=== PATIENT | male | born 1960 | race Caucasian/White ===

== ENCOUNTER 2020-12-22 09:51 | Outpatient (REF) | payer BC, SELFPAY | END 2020-12-22 09:52 | disposition home or self-care (01) | LOC: HO.LAB 09:51 | PROVIDERS: Visit Provider Internal Medicine | DX: Z20.822 Contact with and (suspected) exposure to COVID-19 (principal) | CPT/HCPCS: C9803; U0003; U0005 ==

== ENCOUNTER 2025-01-25 04:39 | Inpatient (IN) | payer BC, SELFPAY ==
[2025-01-25] VITALS (14 sets, daily range): BP systolic 113–183; BP diastolic 71–118; PULSE 92–132; RESP 16–25; TEMP 36.3–37.1; O2SAT 94–97; BMI 32.7; BMI 33.6
--- NOTE | ~2025-01-25 | XR_ITS ---
CLINICAL HISTORY: SOB 1 view chest x-ray Comparison: None provided Findings: Mild diffuse interstitial vascular congestion/edema. Small left pleural effusion. No pneumothorax. The heart shadow is moderately prominent. No acute fracture. IMPRESSION: Prominent heart shadow. Mild diffuse interstitial edema. Small left pleural effusion. This document has been electronically signed by: Rajesh Yang MD on 01/25/2025 06:37:51
--- NOTE | ~2025-01-25 | CT_ITS ---
CLINICAL HISTORY: moderate risk wells critera, eval for PE CT angiography chest with contrast. 3D Postprocessing. Comparison: CR - XR CHEST 1V - 01/25/25 05:24 EDT Findings: Cardiomegaly is present with left atrial enlargement. RV/LV ratio is normal. Unremarkable thoracic aorta and great vessels. No aneurysm. No acute pulmonary embolus. The visualized thyroid and mediastinum are unremarkable. Bilateral mid to lower lung predominant interlobular septal thickening with ground-glass opacities consistent with pulmonary edema. Small bilateral pleural effusions. Right lower lobe patchy opacities could reflect developing pneumonia. The upper abdomen is unremarkable. The bones are intact. IMPRESSION: 1. No pulmonary embolism. 2. Pulmonary edema, bilateral small pleural effusions, with patchy right lower lobe consolidation suggesting possible superimposed pneumonia. This document has been electronically signed by: Yoni Weeks MD on 01/25/2025 07:06:05
--- NOTE | 2025-01-25 04:45 | ECG_ITS ---
Test Reason : SOB Blood Pressure : */* mmHG Vent. Rate : 129 BPM Atrial Rate : * BPM P-R Int : * ms QRS Dur : 84 ms QT Int : 270 ms P-R-T Axes : * 2 59 degrees QTcB Int : 395 ms Artifact in tracing Atrial fibrillation with rapid ventricular response with premature ventricular or aberrantly conducted complexes Abnormal ECG No previous ECGs available Referred By: Generic ED Physician Electronically Signed By: JAMIE RILEY
--- NOTE | 2025-01-25 04:53 | ED_ITS ---
HPI - Asthma General Chief Complaint: Asthma Stated Complaint: difficulty breathing Time Seen by Provider: 01/25/25 04:53 Source: patient and family Mode of arrival: ambulatory Limitations: no limitations History of Present Illness ED Provider: Dr. Denise Bucio HPI Narrative: 64-year-old male with remote history of asthma, does not see primary care doctor and has not seen a doctor in his entire adult life, does not take any medications, presenting with shortness of breath that is been ongoing for about a week now. Patient admits that he has been having intermittent shortness of breath with exertion for many years but has noticed worsening symptoms over the last month or so. Noted about a week ago to have severe shortness of breath to the point where this morning he felt like he was ?breathing under water? and came to the hospital for evaluation. Denies associated fever. Describes chest tightness but no outright pain. Has also been having issues with hemoptysis over the last 4 days. Unable to quantify the amount. Denies known sick contacts. No recent incarceration or immunocompromise that he is aware of. Denies lower extremity edema or pain. No family history of early onset heart disease or sudden cardiac . No recent travel. Admits to asthma as a child but never prescribed an inhaler. Occasionally uses an [id number] inhaler for asthma. No prescribed bronchodilators. No use of anticoagulation. Related Data Allergies Allergy/AdvReac Type Severity Reaction Status Date / Time Seasonal Allergies Allergy Runny Nose Verified 01/25/25 04:46 Sulfa (Sulfonamide Allergy Rash Verified 01/25/25 04:46 Antibiotics) Review of Systems 2 Review of Systems: As per HPI, full review of systems performed and negative but for the above mentioned pertinent positives and negatives. [facility] Social History Social History Smoked in Last 30 Days: No Use of substances other than those prescribed or required for medical reasons: No Advance Directives: No Advance Directives Information Provided: Yes Do you have a plan to hurt others: No Plan Physical Exam 2 Exam: Exam: GENERAL: Chronically ill-appearing, mild respiratory distress. SKIN: Normal skin color for ethnicity, warm, dry, no rashes noted. HEENT: Normocephalic, atraumatic, no stridor, EOMI. NECK: Soft, supple, full ROM, midline structures nontender, no step-offs, no deformities, no lymphadenopathy. CHEST: Heart regular tachycardia, symmetric chest rise and fall. PULMONARY: Coarse lung sounds bilaterally, diminished at the bases, ,mild respiratory distress with poor air movement, no wheezes. ABDOMINAL: Soft, protuberant nontender, quiet bowel sounds in all quadrants. : Deferred. MUSCULOSKELETAL: Normal tone, full range of motion, no deformities, no peripheral edema. NEURO: Alert and oriented to person, CN II through XII intact, no focal neurologic deficits. PSYCHIATRIC: Anxious affect, appropriate demeanor. Vital Signs: Vital Signs: Last Vital Signs Temp 97.4 F 01/25/25 07:10 Pulse 113 H 01/25/25 07:10 Resp 20 01/25/25 07:10 BP 150/100 H 01/25/25 07:10 Pulse Ox 94 01/25/25 07:10 O2 Del Method Room Air 01/25/25 07:10 BMI result Body Mass Index 32.7 Medications Administered Discontinued Medications Generic Name Dose Route Start Last Admin Trade Name Efraínq PRN Reason Stop Dose Admin Albuterol/Ipratropium 3 ml 01/25/25 05:19 01/25/25 05:27 Albuterol/Iprat 2.5/0.5mg 3 Ml Ampul.Neb INHALE 01/25/25 05:20 3 ml ONCE ONE Administration Diltiazem HCl 15 mg 01/25/25 05:12 01/25/25 05:15 Diltiazem Hcl 50 Mg/10 Ml Vial IVPUSH 01/25/25 05:13 15 mg ONCE ONE Administration Furosemide 40 mg 01/25/25 06:09 01/25/25 06:22 Furosemide 40 Mg/4 Ml Vial IVPUSH 01/25/25 06:10 40 mg ONCE ONE Administration Protocol Lactated Ringer's 1,000 mls @ 999 mls/hr 01/25/25 05:19 01/25/25 06:10 Lr IV 01/25/25 06:19 Infused .Q1H1M ONE Infusion Iohexol 65 ml 01/25/25 06:15 01/25/25 06:16 Iohexol 350 Mg/Ml 100 Ml Infus..Btl IV 01/25/25 06:16 65 ml ONCE ONE Administration Medical Decision Making Medical Decision Making MDM Narrative: Patient presents in respiratory distress. Differential diagnosis includes flash pulmonary edema, COPD exacerbation, pneumothorax, pneumonia, ACS, pulmonary embolism, metabolic acidosis, CHF, arrhythmias, among many others. The serious nature of the patient's symptoms makes this presentation complex, with potential for significant, worsening morbidity and mortality without immediate treatment/intervention. Patient arrives in respiratory distress but has a relatively normal oxygen level on room air. His work of breathing is extremely labored and he is having poor air movement though I do not hear any crackles on exam. He has a history of asthma so we will attempt a bronchodilator however, clinically he presents more of a cardiac picture. He has had hemoptysis over the last 5 days or so, concern for potential pulmonary embolism versus pneumonia. He will need a CTA to evaluate this further. CTA does not show evidence of pulmonary embolism but he does have a dense consolidation in the right lower lobe as well as bilateral pleural effusions. He was given broad-spectrum antibiotics including doxycycline and Rocephin. Holding off on further IV fluids given his bilateral pleural effusions and clinical picture of congestive heart failure. He does not have a history of CHF or of atrial fibrillation for that matter. That being said, he has not seen a doctor in his entire adult life and has never been diagnosed with any cardiopulmonary disease. He initially presented in rapid atrial fibrillation, rate controlled after just a single dose of Cardizem IV (15 mg). He reports significant improvement in his symptoms and indeed, his blood pressure has improved drastically. Case discussed with hospitalist who agrees with the plan for admission. Admitted in guarded condition with new onset atrial fibrillation, bilateral pleural effusions and right lower lobe pneumonia. Differential Diagnosis Differential Diagnoses: The differential diagnosis associated with the presentation includes (As above) Admission/Observation Consideration of admission/observation: Escalation of care including admission/observation considered Consult Healthcare Provider Management of the patient was discussed with: Hospitalist Lab Data MDM Lab Attestation statement: I reviewed the patient's lab results. 01/25/25 05:01 01/25/25 05:01 Labs: Lab Results 01/25/25 01/25/25 Range/Units 05:01 05:07 WBC 8.5 (4.8-10.8) X10*3/uL RBC 5.44 (4.60-5.80) X10*6/uL Hgb 15.7 (14.0-18.0) g/dl Hct 46.3 (42.0-52.0) % MCV 85.1 (80.0-98.0) fL MCH 28.9 (27.0-33.0) pg MCHC 33.9 (31.0-36.0) g/dl RDW 13.0 (11.0-16.0) % Plt Count 170 (160-400) X10*3/uL MPV 10.7 (9.4-12.4) fL Immature Gran % (Auto) 0.2 (0.0-0.4) % Neut % (Auto) 75.6 H (45-73) % Lymph % (Auto) 14.7 L (20-40) % [place] % (Auto) 7.4 (2-11) % Eos % (Auto) 2.0 (0-4) % Baso % (Auto) 0.1 (0-2) % Lymph # (Auto) 1.2 (1.2-4.9) X10*3/uL [place] # (Auto) 0.6 (0.1-1.2) X10*3/uL Eos # (Auto) 0.2 (0.0-0.4) X10*3/uL Baso # (Auto) 0.0 (0.0-0.2) X10*3/uL Abs Immat Gran (auto) 0.02 (0.00-0.03) X10*3/uL Absolute Neuts (auto) 6.4 (2.0-8.3) x10*3/uL Absolute Nucleated RBC 0.000 (0.0-0.012) X10*3/uL Nucleated RBC % (auto) 0.0 (0.0-0.2) /100WBC VBG pH 7.37 (7.32-7.43) VBG pCO2 46 mmHg VBG pO2 46 mmHg VBG HCO3 27 H (22-26) mmol/L VBG O2 Saturation 64.0 % VBG Base Excess 1.2 mmol/L Sodium 141 (135-145) mmol/L Potassium 4.3 (3.3-5.1) mmol/L Chloride 108 (96-108) mmol/L Carbon Dioxide 22 (22-29) mmol/L Anion Gap 15 (12-20) BUN 17 H (9-16) mg/dL Creatinine 1.17 (0.5-1.4) mg/dL Estim Creat Clear Calc 67.6 Estimated GFR > 60 Random Glucose 128 H (60-115) mg/dL Calcium 9.0 (8.4-10.2) mg/dL Magnesium 2.1 (1.6-2.6) mg/dL Total Bilirubin 1.0 (0.0-1.0) mg/dL AST 26 (5-37) U/L ALT 23 (0-40) U/L Alkaline Phosphatase 129 H (39-117) U/L Troponin I High Sens 8.6 (<3.5-35.0) ng/L NT-Pro-B Natriuret Pep 2354.1 H (<300) pg/mL Total Protein 7.0 (6.5-8.0) g/dL Albumin 4.3 (3.5-5.0) g/dL TSH 3.76 (0.32-4.0) uIU/mL Influenza Type A (PCR) NEGATIVE (Negative) Influenza Type B (PCR) NEGATIVE (Negative) RSV RNA Qual (PCR) NEGATIVE (Negative) SARS-CoV-2 RNA (RT-PCR) NEGATIVE (Negative) ABG Data Attestation ABG: I personally reviewed and interpreted this ABG as follows: Interpretation: No acidosis, slightly elevated bicarbonate, likely compensatory Independent Interpretation I performed an independent interpretation of an: EKG and Plain X-Ray Interpretation: Chest x-ray shows evidence of pulmonary edema, no dense consolidation or bony abnormality, slight cardiomegaly. 4:53 a.m. My independent interpretation of the ECG reveals atrial fibrillation with RVR with rate of 129, normal axis, normal intervals, no ST elevations or depressions to suggest ischemic changes, no previous for comparison 5:36 a.m. My independent interpretation of the ECG reveals atrial fibrillation with RVR with rate of 98, leftward axis, normal intervals, no ST elevations or depressions to suggest ischemic changes, PVCs, rate improved from previous Radiology Impression Discussion of test interpretation with radiology: I have reviewed the radiologist's reading. Radiologist Impression: CT angiography chest with contrast. 3D Postprocessing. Comparison: CR - XR CHEST 1V - 01/25/25 05:24 EDT Findings: Cardiomegaly is present with left atrial enlargement. RV/LV ratio is normal. Unremarkable thoracic aorta and great vessels. No aneurysm. No acute pulmonary embolus. The visualized thyroid and mediastinum are unremarkable. Bilateral mid to lower lung predominant interlobular septal thickening with ground-glass opacities consistent with pulmonary edema. Small bilateral pleural effusions. Right lower lobe patchy opacities could reflect developing pneumonia. The upper abdomen is unremarkable. The bones are intact. IMPRESSION: 1. No pulmonary embolism. 2. Pulmonary edema, bilateral small pleural effusions, with patchy right lower lobe consolidation suggesting possible superimposed pneumonia. Independent Historian Clinical information obtained from an independent historian. History obtained from or confirmed by: Spouse Prescription Management I considered prescription management with: Antibiotic Chronic Conditions Patient?s care impacted by: Other (Asthma) Critical Care Time Critical Care Time Critical Care Time: Yes Total Critical Care Time: 40 Attestation: CRITICAL CARE TIME: 40 minutes of critical care time was spent in direct patient care at the bedside or in the immediate area with this patient. Critical care was necessary to treat or prevent imminent or life-threatening deterioration of the following conditions acute dyspnea, atrial fibrillation with RVR, new onset CHF, hemoptysis due to pulmonary edema, pneumonia, pleural effusions. This patient is high risk for decompensation and/or . This time was spent assessing and managing the patient, interpreting labs and imaging, coordinating care with other medical providers, gathering history from either the patient, their representatives, EMS or chart review, and discussing management with admitting team. Discharge Plan Discharge Clinical Impression: Acute respiratory distress, Pneumonia, New onset atrial fibrillation, Atrial fibrillation with rapid ventricular response, Pleural effusion, bilateral Patient Disposition: Admitted As Inpatient Print Language: [place]i
[2025-01-25 05:05] LABS: Venous Blood Gas Refer to POC result
[2025-01-25 05:07] LABS: Hematocrit 46.3 % (42.0-52.0); Hemoglobin 15.7 g/dl (14.0-18.0); Imm Gran Abs Auto 0.02 X10*3/uL (0.00-0.03); Imm Gran Pct Auto 0.2 % (0.0-0.4); Lymphocytes Absolute Auto 1.2 X10*3/uL (1.2-4.9); MANUAL DIFF FLAG NO; Mean Corpuscular HGB Conc 33.9 g/dl (31.0-36.0); Mean Corpuscular Hemoglobin 28.9 pg (27.0-33.0); Mean Corpuscular Volume 85.1 fL (80.0-98.0); NRBC Abs Auto 0.000 X10*3/uL (0.0-0.012); NRBC Pct Auto 0.0 /100WBC (0.0-0.2); Platelet Count 170 X10*3/uL (160-400); Red Blood Count 5.44 X10*6/uL (4.60-5.80); White Blood Count 8.5 X10*3/uL (4.8-10.8)
[2025-01-25 05:11] LABS: VBG HCO3 27 mmol/L (22-26); VBG O2 % Saturation 64.0 %
--- NOTE | 2025-01-25 05:19 | ECG_ITS ---
Test Reason : ARRHYTHMIA Blood Pressure : */* mmHG Vent. Rate : 93 BPM Atrial Rate : * BPM P-R Int : * ms QRS Dur : 88 ms QT Int : 364 ms P-R-T Axes : * 1 33 degrees QTcB Int : 452 ms Atrial fibrillation Abnormal ECG When compared with ECG of 25-Jan-2025 04:53, No significant change was found Referred By: Denise Bucio Electronically Signed By: JAMIE RILEY
--- NOTE | 2025-01-25 05:20 | ECG_ITS ---
Test Reason : ARRYTHMIA Blood Pressure : */* mmHG Vent. Rate : 98 BPM Atrial Rate : * BPM P-R Int : * ms QRS Dur : 86 ms QT Int : 360 ms P-R-T Axes : * -3 -20 degrees QTcB Int : 459 ms Atrial fibrillation with premature ventricular or aberrantly conducted complexes Nonspecific T wave abnormality Abnormal ECG When compared with ECG of 25-Jan-2025 05:19, No significant changes seen Referred By: Denise Bucio Electronically Signed By: JAMIE RILEY
[2025-01-25] MEDS: Albuterol/Iprat 2.5/0.5MG 3 ML AMPUL.NEB INHALE (05:27)
[2025-01-25] MEDS: Lactated Ringers 1,000 ML 999 ML IV (05:27)
[2025-01-25 05:30] LABS: Alanine Aminotransferase 23 U/L (0-40); Albumin Level 4.3 g/dL (3.5-5.0); Alkaline Phosphatase 129 U/L (39-117); Anion Gap 15 (12-20); Aspartate Amino Transferase 26 U/L (5-37); Blood Urea Nitrogen 17 mg/dL (9-16); Calcium 9.0 mg/dL (8.4-10.2); Carbon Dioxide 22 mmol/L (22-29); Chloride 108 mmol/L (96-108); Creatinine Clr Calc Pharmacy 67.6; Estimated Glomerular Filt Rate > 60; Magnesium 2.1 mg/dL (1.6-2.6); Potassium 4.3 mmol/L (3.3-5.1); Sodium 141 mmol/L (135-145); Total Protein 7.0 g/dL (6.5-8.0)
[2025-01-25 05:33] LABS: Troponin-I High Sensitivity 8.6 ng/L (<3.5-35.0)
[2025-01-25 05:35] LABS: NT Pro B Type Natriuretic Pept 2354.1 pg/mL (<300)
[2025-01-25 05:44] LABS: Resp Syncy Virus RNA Qual PCR NEGATIVE (Negative); SARS COV2 PCR INHOUSE NEGATIVE (Negative)
[2025-01-25 05:48] LABS: Thyroid Stimulating Hormone 3.76 uIU/mL (0.32-4.0)
--- OUTSIDE RECORDS SUMMARY | 2025-01-25 05:48 | XMS_ITS | Data Portability ---
Author Organization JACKY Cutler [facility], [address] Address [address] [place] [address] Assessment No assessment recorded. Plan of Treatment Reminders Order Date Submit Date Provider Last Modified By Organization Details Last Modified Time Details Appointments None recorded. Lab urinalysis , dipstick 2022 023 [facility] [address], [address], 16:12:01 STI panel 2022 023 [facility], [address] [place] [address], [place], [address], 10:06:29 Referral None recorded. Procedures None recorded. Surgeries None recorded. Imaging None recorded. Medication Orders ceftriaxon e 500 mg solution for injection 2022 023 emonfette Not available 16:20:24 doxycyclin e hyclate 100 mg capsule 2022 023 [id number], [address] [place], [place], [id number], 16:13:17 Patient TargetsNo targets recorded. Patient Instructions Encounter Date Encounter Id Patient Instructions Last Modified By Organization Details Last Modified Time 09/19/2022 [id number] safer sex: care instructions skeal Not available 09/19/2022 16:13:45 Reason for Referral None Reported. Results Created Date Observation Date Name Description Value Unit Range Abnormal Flag Note LastModifiedBy Organization Detail LastModifiedTime 09/20/19 23 09/22/2022 CT NG M GENIT ALIUM MARISSA, URINE mycoplasma genitalium MARISSA NEGATI VE negati ve Not Available [facility] ([facility]) [address] [facility], [place], [address], 09/24/2022 10:06:29 09/20/19 23 09/24/2022 CT NG M GENIT ALIUM MARISSA, URINE chlamydia trachomatis, MARISSA NEGATI VE negati ve Not Available [facility] ([facility]) [address] [facility], [place], [address], 09/24/2022 10:06:29 09/20/19 23 09/24/2022 CT NG M GENIT ALIUM MARISSA, URINE neisseria gonorrhoeae, MARISSA POSITI VE negati ve abnormal Not Available [facility] ([facility]) [address] [place], [address], 09/24/2022 10:06:29 09/20/19 23 09/19/2022 urina lysis , dipst ick Unknown Analyte Normal = light yellow Not Available [facility] [address], [address], 09/19/2022 15:30:53 09/20/19 23 09/19/2022 urina lysis , dipst ick Unknown Analyte Yellow Not Available [address], [address], 09/19/2022 15:30:53 09/20/19 23 09/19/2022 urina lysis , dipst ick Unknown Analyte Normal = clear Not Available [address], [address], 09/19/2022 15:30:53 09/20/19 23 09/19/2022 urina lysis , dipst ick Unknown Analyte Clear Not Available [address] [place], [address], 09/19/2022 15:30:53 09/20/19 23 09/19/2022 urina lysis , dipst ick Unknown Analyte Normal = negati ve Not Available eddie howell [address], [place], [address], 09/19/2022 15:30:53 09/20/19 23 09/19/2022 urina lysis , dipst ick Unknown Analyte Negati ve Not Available eddie howell [address], [place], [address], 09/19/2022 15:30:53 09/20/19 23 09/19/2022 urina lysis , dipst ick Unknown Analyte Normal = Negati ve Not Available eddie howell [address], [place], [address], 09/19/2022 15:30:53 09/20/19 23 09/19/2022 urina lysis , dipst ick Unknown Analyte Negati ve Not Available eddie howell [address], [place], [address], 09/19/2022 15:30:53 09/20/19 23 09/19/2022 urina lysis , dipst ick Unknown Analyte Normal = Negati ve Not Available eddie howell [address], [place], [address], 09/19/2022 15:30:53 09/20/19 23 09/19/2022 urina lysis , dipst ick Unknown Analyte Negati ve Not Available eddie howell [address], [place], [address], 09/19/2022 15:30:53 09/20/19 23 09/19/2022 urina lysis , dipst ick Unknown Analyte Normal = 1.010, 1.015, 1.020 Not Available eddie howell [address], [place], [address], 09/19/2022 15:30:53 09/20/19 23 09/19/2022 urina lysis , dipst ick Unknown Analyte 1.030 Not Available [address], [place], [address], 09/19/2022 15:30:53 09/20/19 23 09/19/2022 urina lysis , dipst ick Unknown Analyte Normal = Negati ve Not Available [facility] [address], [place], [address], 09/19/2022 15:30:53 09/20/19 23 09/19/2022 urina lysis , dipst ick Unknown Analyte Negati ve Not Available [facility] [address], [place], [address], 09/19/2022 15:30:53 09/20/19 23 09/19/2022 urina lysis , dipst ick Unknown Analyte Normal = 6.5, 7.0, 7.5, 8.0 Not Available [facility] [address], [place], [address], 09/19/2022 15:30:53 09/20/19 23 09/19/2022 urina lysis , dipst ick Unknown Analyte 5.5 Not Available [address], [place], [address], 09/19/2022 15:30:53 09/20/19 23 09/19/2022 urina lysis , dipst ick Unknown Analyte Normal = Negati ve Not Available [address], [place], [address], 09/19/2022 15:30:53 09/20/19 23 09/19/2022 urina lysis , dipst ick Unknown Analyte Negati ve Not Available eddie howell [address], [place], [address], 09/19/2022 15:30:53 09/20/19 23 09/19/2022 urina lysis , dipst ick Unknown Analyte Normal = 0.2, 1.0 Not Available eddie howell [address], [place], [address], 09/19/2022 15:30:53 09/20/19 23 09/19/2022 urina lysis , dipst ick Unknown Analyte 0.2 E.U./d L Not Available eddie [address], [place], [address], 09/19/2022 15:30:53 09/20/19 23 09/19/2022 urina lysis , dipst ick Unknown Analyte Normal = Negati ve Not Available eddie howell [address], [place], [address], 09/19/2022 15:30:53 09/20/19 23 09/19/2022 urina lysis , dipst ick Unknown Analyte Negati ve Not Available eddie howell [address], [place], [address], 09/19/2022 15:30:53 09/20/19 23 09/19/2022 urina lysis , dipst ick Unknown Analyte Normal = Negati ve Not Available eddie howell [address], [place], [address], 09/19/2022 15:30:53 09/20/19 23 09/19/2022 urina lysis , dipst ick Unknown Analyte Negati ve Not Available [facility] [address] [place] [address], [place], [address], 09/19/2022 15:30:53 Result Notes None recorded. Problems No Known Problems Medical Equipment None Reported. Allergies Allergen ID Allergen Name Allergen Category Reaction Reaction Severity Criticality Documentation Date Start Date Code Code System Note Provider Name and Address Organization Details Recorded Time 935212 grass pollen environme nt,medica tion Not available Not available Not available 09/19/2022 JACKY Geller [facility] 15:25:03 [id number] Substance with sulfonami de structure and antibacte rial mechanism of action (substanc e) medicatio n rash Not available Not available 09/19/2022 [id number] SNOMED JACKY Geller [facility] 15:25:11 Medications Name Sig Start Date Stop Date Status Note LastModified by Organization Details LastModified Time doxycyclin e hyclate 100 mg capsule Take 1 capsule twice a day by oral route for 7 days. 2022 active Not Available Not Available Not Avai lable ceftriaxon e 500 mg solution for injection Take 500 mg by injection route for 1 day. 2022 active pt verified, tolerated well EM RN Not Available Not Available Not Available Vitals Date Recorded Body height Body mass index (BMI) Body weight Pain severity - 0-10 verbal numeric rating [Score] - Reported Respiratory rate Oxygen saturation Oxygen saturation in Arterial blood by Pulse oximetry Heart rate Body temperature Systolic And Diastolic Systolic And Diastolic Provider Name and Address Organization Details Last Updated DateTime 3 167.64 cm 29.9 kg/m2 85126.5 9 g 0 18 /min 97 % 97 % 94 /min 98.7 [degF] 177/103 mm[Hg] 200/130 mm[Hg] Aundrea Black [facility] 15:40:21 Social History Question Answer Notes LastModified by Organizat ion Details LastModified Time Tobacco Smoking Status Never Smoker JACKY Geller [facility] 09/19/2022 15:25:54 Have You Recently Traveled Abroad? No Information not available 09/19/2022 Sex: Unknown Functional Status Question Answer Note LastModified by Organizat ion Details LastModified Time How many times per week do you consume alcohol? Less than 1 time per week Information not available 09/19/2022 Do you use any illicit or recreational drugs? No Information not available 09/19/2022 Do you or have you ever used any other forms of tobacco or nicotine? No Information not available 09/19/2022 What is your level of alcohol consumption? Occasional Information not available 09/19/2022 Mental Status None recorded. Family History Relationship Description Onset Age of this Age Resolved Age Notes LastModified by Organization Details LastModified Time Father No current problems or disability [email or web address] Not available 09/19 15:25:41 Mother No current problems or disability [email or web address] Not available 09/19 15:25:42 Medical History No medical history recorded. Past Encounters Encounter ID Performer Location Encounter Start Date Encounter Closed Date Diagnosis/Indication Diagnosis SNOMED-CT Code Diagnosis ICD10 Code Diagnosis IMO Codes Diagnosis Note [id number] [facility] [address] [place] [address] 11/12/2016 09:54:03 11/12/2016 11:53:19 [id number] [address] [address] [place] [address] 07/11/2021 09:02:56 07/11/2021 10:47:29 [id number] [address] [address] [place] [address] 12/03/2019 08:26:18 12/03/2019 09:42:18 [id number] [address] [address] [address] [place] [address] 03/28/2018 11:23:14 03/28/2018 12:50:02 [id number] [address] [address] [facility] [place] [address] 11/03/2018 16:19:50 11/03/2018 16:46:42 [id number] [address] [address] [address] [address] [facility] [place] [address] 07/01/2016 09:08:08 07/01/2016 10:15:02 [id number] [address] [address] [facility] [place] [address] 12/30/2020 10:54:02 12/30/2020 15:07:11 [id number] [address] [address] [facility] [place] [address] 11/25/2015 13:54:06 11/25/2015 14:51:13 [id number] [address] [address] [place] [address] [address] 02/03/2017 09:26:43 02/03/2017 10:27:37 [id number] [address] [facility] [place] [address] 07/29/2017 11:19:19 07/29/2017 12:27:52 [id number] [address] [address] [address] [facility] [place] [address] 10/23/2020 08:03:14 10/23/2020 09:08:25 [id number] [address] [address] [facility] [place] [address] 01/22/2016 11:26:51 01/22/2016 12:12:20 [id number] [address] [address] [facility] [place] [address] 05/14/2016 09:14:22 05/14/2016 10:10:15 [id number] [address] [address] [place] [address] 11/07/2015 08:31:58 11/07/2015 09:41:58 [id number] [address] [address] [facility] [place] [address] 05/02/2021 12:13:40 05/02/2021 13:36:05 [id number] Claritza Bravo MD [address] [address] [place] [address] 09/19/2022 14:27:48 09/19/2022 16:29:09 Discharge from penis 6624171 R36.9 All sexually active men and women should receive periodic testing for STD's. The frequency that these tests should be repeated is dependent upon several factors, including the number of sexual partners, use of barrier contracept ion, and other factors.Te sting should include screening for Chlamydia, Gonorrhea, Syphilis, and HIV. Additional testing may be required if symptoms of specific STD's are present. If you are sexually active, you should follow up with the Local Health Department for HIV testing and any other testing not performed by depict . Partners should be notified and testing should occur as well if concerns exist. Hypertensive urgency 443 [id number] I16.0 BP elevated and needs ER evaluation . Patient signed AMA and will not go to ER Health Concerns Section Related Observation LastModified by Organization Detai ls LastModified Time None Recorded Concern Status LastModified by Organization Details LastModified Time None Recorded Advance Directives Directive None Recorded Payers Insurance Date Sequence Insurance Name Policy Number Policy Moore Covered Member ID Moore Member ID Guarantor Name 09/19/2022 1 MIKE-JUAN (PPO) [id number] Bernard Vega [id number] Bernard Vega Notes Date Note Type Note Provider Name and Address Organization Details Recorded Time 09/19/2022 text/html Genital Lesions (male)Reported by PatientHPIFor associated symptoms, patient reportspenile dischargebut reportsno abdominal pain,no dysuria,no nausea,no vomiting,no fever, andno urgency. For quality, patient reportspainless. For context, patient reportssexually active,consistent use of barrier protection, andhigh risk sexual activities.Has had gonnorhea in the past.Very elevated Blood Pressure. NO history HTN.Feels very anxious due to the situation Urinary Problems-MaleReported by Patient Claritza Bravo MD [address] [place], [address], [place] - [facility] 09/21/2022 13:15:32
[2025-01-25] MEDS: iohexoL 350 MG/ML 100 ML INFUS..BTL 65 ML IV (06:16)
[2025-01-25] MEDS: Furosemide 40 MG/4 ML VIAL IVPUSH ×2 (06:22→16:36)
--- NOTE | 2025-01-25 07:51 | PC.NURSE ---
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 Blood cultures and lactic drawn, iv abx started per order, denies pain, call cunningham within reach, plan of care ongoing
--- NOTE | 2025-01-25 08:37 | PM.IMHP ---
History of Present Illness Date of Service: 01/25/25 Chief Complaint: Shortness of breath 64-year-old man with no significant medical history presents to the ER with complaints of worsening shortness of breath with activity, palpitations and chest pressure over the last 3 weeks. He reported that he has not been in more than and has not on any medications but in the last few weeks he has noticed that with activity including climbing stairs and walking he has been more short of breath, when he sits down he starts to recover. He also reports central chest pressure without any radiation also with activity and heart palpitations. He denies alcohol, tobacco or drug use. In the ER chest CTA was negative for pulmonary embolism but did show pulmonary edema with bilateral small pleural effusions and patchy lower lobe consolidation suggesting possible, pro BNP was 2354, TSH 3.76. Blood pressure elevated at 183/118. In the ER patient was given a dose of diltiazem, albuterol, Lasix, ceftriaxone, doxycycline and 1 L of IV fluid. He will be admitted for further management and treatment of acute congestive heart failure, new onset AFib and pneumonia. Review of Systems Review of Systems: Denies any recent fever chills or decrease in appetite respiratory see HPI cardiovascular see HPI gastrointestinal denies any dysphagia abdominal pain nausea vomiting or diarrhea genitourinary denies any dysuria frequency or hematuria musculoskeletal denies any joint pain or swelling neuropsych denies any weakness or seizures all other systems reviewed are negative [facility] Medical History (Updated 01/25/25 @ 08:40 by Rose Cat NP) No pertinent past medical history Family History (Updated 01/25/25 @ 08:41 by Rose Cat NP) Father Skin cancer Mother Cancer of unknown origin Pertinent family history: Father had heart problems of unknown origin Surgical History (Updated 01/25/25 @ 08:42 by Rose Cat NP) H/O hernia repair S/P repair of hydrocele Social History (Updated 01/25/25 @ 08:44 by Rose Cat NP) Household Members: Spouse Alcohol intake: current Alcohol intake frequency: holidays/special occasions only Current occupational status: employed Meds Allergies Allergy/AdvReac Type Severity Reaction Status Date / Time Seasonal Allergies Allergy Runny Nose Verified 01/25/25 04:46 Sulfa (Sulfonamide Allergy Rash Verified 01/25/25 04:46 Antibiotics) Active Medications: Current Medications Doxycycline Hyclate 100 mg/ (Sodium Chloride) 250 mls @ 166.67 mls/hr IV ONCE ONE Stop: 01/25/25 08:45 Home Medications ?Medication ?Instructions ?Recorded ?Confirmed ?Last Taken ?Type No Known Home Meds 01/25/25 01/25/25 Unknown History Physical Exam Vital Signs and Narrative: Vital Signs: Last Vital Signs Temp 97.4 F 01/25/25 07:10 Pulse 113 H 01/25/25 07:10 Resp 20 01/25/25 07:10 BP 150/100 H 01/25/25 07:10 Pulse Ox 94 01/25/25 07:10 O2 Del Method Room Air 01/25/25 07:10 BMI result Body Mass Index 32.7 Appearing in no acute distress head is normocephalic atraumatic eyes pupils are PERRLA sclera is anicteric mouth throat mucous membranes are intact and moist neck is supple no lymphadenopathy, no JVD noted lung clear/rales heart irregular positive bowel sounds, abdomen is soft, nontender neuro patient is alert x3, no focal deficits Results Labs 01/25/25 05:01 01/25/25 05:01 Labs: Laboratory Results - last 24 hr 01/25/25 01/25/25 01/25/25 05:01 05:07 07:36 MCV 85.1 MCH 28.9 MCHC 33.9 RDW 13.0 Plt Count 170 MPV 10.7 Immature Gran % (Auto) 0.2 Neut % (Auto) 75.6 H Lymph % (Auto) 14.7 L [place] % (Auto) 7.4 Eos % (Auto) 2.0 Baso % (Auto) 0.1 Lymph # (Auto) 1.2 [place] # (Auto) 0.6 Eos # (Auto) 0.2 Baso # (Auto) 0.0 Abs Immat Gran (auto) 0.02 Absolute Neuts (auto) 6.4 Absolute Nucleated RBC 0.000 Nucleated RBC % (auto) 0.0 VBG pH 7.37 VBG pCO2 46 VBG pO2 46 VBG HCO3 27 H VBG O2 Saturation 64.0 VBG Base Excess 1.2 Anion Gap 15 Estim Creat Clear Calc 67.6 Estimated GFR > 60 Random Glucose 128 H Lactic Acid 1.8 Calcium 9.0 Magnesium 2.1 Total Bilirubin 1.0 AST 26 ALT 23 Alkaline Phosphatase 129 H Troponin I High Sens 8.6 NT-Pro-B Natriuret Pep 2354.1 H Total Protein 7.0 Albumin 4.3 TSH 3.76 Influenza Type A (PCR) NEGATIVE Influenza Type B (PCR) NEGATIVE RSV RNA Qual (PCR) NEGATIVE SARS-CoV-2 RNA (RT-PCR) NEGATIVE Assessment and Plan (1) New onset atrial fibrillation: Status: Acute Plan 64-year-old man with no significant medical problems admitted with new onset atrial fibrillation, acute congestive heart failure and pneumonia. Patient reports he has not seen a physician or been hospitalized in over 15 years. New onset atrial fibrillation, unspecified Treated with 1 dose of IV diltiazem in the ER Started on IV diltiazem drip Monitor on telemetry Chads 2 Vasc score 0, discussed with Cardiology regarding anticoagulation Check echocardiogram Cardiology consultation Acute congestive heart failure, unspecified Pleural effusions noted on CT scan, likely related to heart failure IV Lasix 40 mg IV b.i.d. Monitor intake and output Daily weights Cardiology consultation Pneumonia, unspecified IV Rocephin and azithromycin May use supplemental oxygen as needed to keep oxygen saturation greater than 91% Follow up blood cultures Elevated blood pressure readings No history of hypertension Start lisinopril 5 mg daily Monitor blood pressures closely Tachycardia and tachypnea Secondary to atrial fibrillation, no sepsis DVT prophylaxis with Lovenox Full code Quality Stroke Does the patient have a stroke diagnosis?: No VTE Prior VTE?: No VTE Risk Level:: Medical - moderate - high VTE Device Contraindication: Treatment Not Indicated VTE Drug Contraindication: N/A - Med Ordered
--- NOTE | 2025-01-25 08:40 | PHA.MEDREC ---
Addendum entered by Karena Toney RPh 01/25/25 08:46: Reviewed by pharmacist Original Note: Pharmacy Consult ? Medication Reconciliation Pharmacy has completed the medication reconciliation. Spoke with pt and he confirmed he is not taking any medications at this time.
--- NOTE | 2025-01-25 09:18 | PC.NURSE ---
cardizem drip cardizem drip was ordered, this nurse noted the patients hr was 90s-114 on the monitor and contacted Rose Cat/hospitalist to discuss and question the need for the drip. It was decided to hold the drip and medicate with PO cardizem, if his HR increases will notify the provider and reassess the need for the drip.
--- NOTE | 2025-01-25 09:38 | MHC.CM.PN ---
Pt. lives with his , he does not have a PCP, brochure provided. He does not use DME, to transport home at DC, DCP; home, self care. CM to follow for DC needs.
--- NOTE | 2025-01-25 10:33 | P.CONCA_ITS ---
History of Present Illness History of Present Illness Date of Service: 01/25/25 Chief complaint: CHF, afib Narrative: This is a cardiology consultation regarding atrial fibrillation and congestive heart failure. He has not seen any physician in more than 14 years or so, last time with the age of 50. He states he generally feels good and hence did not see a reason to see anyone. Apparently was doing fine and no issues but the last couple of weeks he has not been feeling good. He has been having issues with shortness of breath. Even mild activities of making short of breath. He also feeling sensations of heart racing. He was seen in the emergency room and found to be hypertensive and also found to be in atrial fibrillation rapid rate. We are consulted. Currently, he is on diltiazem. Not yet on anticoagulation. He states he feels okay. Review of Systems 2 Review of Systems: Yes all other systems are reviewed and are negative Constitutional: Constitutional: Reports as per HPI and Reports no additional constitutional complaints Eyes: Eyes: Reports as per HPI and Denies no additional eye complaints ENT: Denies system reviewed and no additional complaints, except as documented and Reports as per HPI Cardiovascular: Cardiovascular: Reports as per HPI, Reports no additional cardiovascular complaints, Denies acrocyanosis, Denies cool extremities, Denies chest pain, Denies leg edema, Denies lightheadedness, Reports palpitations and Reports dyspnea Respiratory: Respiratory: Reports as per HPI, Denies no additional respiratory complaints and Reports dyspnea Gastrointestinal: Gastrointestinal: Reports as per HPI and Denies no additional gastrointestinal complaints Genitourinary: Genitourinary: Reports no additional male genitourinary complaints and Reports as per HPI Musculoskeletal: Musculoskeletal: Reports no additional musculoskeletal complaints and Reports as per HPI Integumentary/Breasts: Skin/Breast: Reports system reviewed and no additional complaints, except as docu Neurologic: Reports system reviewed and no additional complaints, except as documented and Reports as per HPI Psychiatric: Psychiatric: Reports no additional psychiatric complaints and Reports as per HPI Endocrine: Endocrine: Reports no additional endocrine complaints, Reports as per HPI and Reports palpitations Hematologic/Lymphatic: Hematologic/Lymphatic: Reports no additional hematologic/lymphatic complaints and Reports as per HPI Allergic/Immunologic: Allergic/Immunologic: Reports no additional allergic/immunologic complaints and Reports as per HPI [facility] Past Medical History Medical History (Updated 01/25/25 @ 10:36 by Obed Pfeiffer MD) No pertinent past medical history Family History Family History (Updated 01/25/25 @ 08:41 by Rose Cat NP) Father Skin cancer Mother Cancer of unknown origin Pertinent family history: He thinks his father might have had atrial fibrillation but not sure. Surgical History Surgical History (Updated 01/25/25 @ 08:42 by Rose Cat NP) H/O hernia repair S/P repair of hydrocele Social History Social History (Updated 01/25/25 @ 08:44 by Rose Cat NP) Household Members: Spouse Alcohol intake: current Alcohol intake frequency: holidays/special occasions only Smoked in Last 30 Days: No Use of substances other than those prescribed or required for medical reasons: No Advance Directives: No Advance Directives Information Provided: Yes Do you have a plan to hurt others: No Plan service: No Current occupational status: employed Meds Allergies Allergy/AdvReac Type Severity Reaction Status Date / Time Seasonal Allergies Allergy Runny Nose Verified 01/25/25 04:46 Sulfa (Sulfonamide Allergy Rash Verified 01/25/25 04:46 Antibiotics) Active Medications: Current Medications Acetaminophen (Acetaminophen 325 Mg Tablet) 650 mg PO Q6H PRN PRN Reason: Pain, Mild 1-3,fever,headache Albuterol/Ipratropium (Albuterol/Iprat 2.5/0.5mg 3 Ml Ampul.Neb) 3 ml INHALE Q4H PRN PRN Reason: Shortness of Breath/Wheezing Apixaban (Apixaban 5 Mg Tablet) 5 mg PO BID [facility] Benzonatate (Benzonatate 100 Mg Capsule) 100 mg PO TID PRN PRN Reason: Cough Calcium Carbonate (Calcium Carbonate 750 Mg Tab.Chew) 750 mg PO Q4H PRN PRN Reason: Heartburn Diltiazem HCl (Diltiazem Hcl 30 Mg Tablet) 30 mg PO QID [facility]; Protocol Last Admin: 01/25/25 09:41 Dose: 30 mg Furosemide (Furosemide 40 Mg/4 Ml Vial) 40 mg IVPUSH BID@0900,1800 [facility]; Protocol Diltiazem HCl 125 mg/ Sodium (Chloride) 125 mls @ 0 mls/hr IVCONT .Q0M [facility]; Protocol Ceftriaxone Sodium 1 gm/ (Sodium Chloride) 50 mls @ 100 mls/hr IV Q24H [facility] Azithromycin 500 mg/ Sodium (Chloride) 250 mls @ 125 mls/hr IV Q24H [facility] Lisinopril (Lisinopril 5 Mg Tablet) 5 mg PO DAILY [facility]; Protocol Last Admin: 01/25/25 09:41 Dose: 5 mg Magnesium Hydroxide (Milk Of Magnesia 30 Ml Oral.Susp) 30 ml PO DAILY PRN PRN Reason: Constipation Melatonin (Melatonin 3 Mg Tablet) 6 mg PO BEDTIME PRN PRN Reason: Insomnia Ondansetron HCl (Ondansetron Hcl 4 Mg/2 Ml Vial) 4 mg IVPUSH Q8H PRN PRN Reason: Nausea and Vomiting Sodium Chloride (0.9 % Sodium Chloride Flush 3 Ml Syringe) 3 ml IVFLUSH QSHIFT [facility] Home Medications ?Medication ?Instructions ?Recorded ?Confirmed ?Last Taken ?Type No Known Home Meds 01/25/25 01/25/25 Un known History Physical Exam 2 Vital Signs: Vital Signs: Last Vital Signs Temp 97.3 F 01/25/25 09:34 Pulse 103 H 01/25/25 09:41 Resp 16 01/25/25 09:34 BP 147/104 H 01/25/25 09:41 Pulse Ox 97 01/25/25 09:34 O2 Del Method Nasal Cannula 01/25/25 09:34 O2 Flow Rate 2 01/25/25 09:34 BMI result Body Mass Index 32.7 Const: General: comfortable and no acute distress O rientation/consciousness: patient oriented x3 HEENT: Other: Unremarkable Head: Yes normal to inspection Neck: Neck: Yes normal visual inspection Chest: Chest palpation & inspection: normal inspection of the chest Resp: Auscultation: clear to auscultation bilaterally Cardio: Palpation: normal PMI Heart sounds: S1 normal heart sound present, S2 normal heart sound present, no gallops, Murmur heart sound present systolic II/ and no rubs GI: Palpation (GI): Soft to palpation Back/Spine/Pelvis: Other: unremarkable Skin: General skin exam: no rashes or lesions noted Neuro: General: patient oriented x3 Extrem: General: Yes normal to inspection Psych: Mental Status: mental status grossly normal Objective Labs and Meds 01/25/25 05:01 01/25/25 05:01 Lab results: Laboratory Results - last 24 hr 01/25/25 01/25/25 01/25/25 05:01 05:07 07:36 WBC 8.5 RBC 5.44 Hgb 15.7 Hct 46.3 MCV 85.1 MCH 28.9 MCHC 33.9 RDW 13.0 Plt Count 170 MPV 10.7 Immature Gran % (Auto) 0.2 Neut % (Auto) 75.6 H Lymph % (Auto) 14.7 L Taylor % (Auto) 7.4 Eos % (Auto) 2.0 Baso % (Auto) 0.1 Lymph # (Auto) 1.2 Taylor # (Auto) 0.6 Eos # (Auto) 0.2 Baso # (Auto) 0.0 Abs Immat Gran (auto) 0.02 Absolute Neuts (auto) 6.4 Absolute Nucleated RBC 0.000 Nucleated RBC % (auto) 0.0 VBG pH 7.37 VBG pCO2 46 VBG pO2 46 VBG HCO3 27 H VBG O2 Saturation 64.0 VBG Base Excess 1.2 Sodium 141 Potassium 4.3 Chloride 108 Carbon Dioxide 22 Anion Gap 15 BUN 17 H Creatinine 1.17 Estim Creat Clear Calc 67.6 Estimated GFR > 60 Random Glucose 128 H Estimat Average Glucose 117 Hemoglobin A1c % 5.7 Lactic Acid 1.8 Calcium 9.0 Magnesium 2.1 Total Bilirubin 1.0 AST 26 ALT 23 Alkaline Phosphatase 129 H Troponin I High Sens 8.6 NT-Pro-B Natriuret Pep 2354.1 H Total Protein 7.0 Albumin 4.3 TSH 3.76 Influenza Type A (PCR) NEGATIVE Influenza Type B (PCR) NEGATIVE RSV RNA Qual (PCR) NEGATIVE SARS-CoV-2 RNA (RT-PCR) NEGATIVE ECG Interpretation: EKGs reviewed. Essentially they show atrial fibrillation rapid ventricular response. Most recent EKGs shows rate of 98/Min. PVC versus aberrant conduction. Assessment and Plan (1) Atrial fibrillation with rapid ventricular response: Status: Acute Currently on diltiazem 30 mg q.i.d.. If indeed there is any LV dysfunction, then switched to beta-blockers. He is going to need possibly RON/cardioversion this hospitalization versus cardioversion after 4 weeks of anticoagulation. To be decided. Start Eliquis. (2) Acute congestive heart failure: Status: Acute Diuretics. Obtain echocardiogram. Plan Discussed with the hospitalist. We will follow up with you closely. Procedures Date of Service Date of Service: 01/25/25
--- NOTE | 2025-01-25 11:44 | HO.NURTONUR ---
Patient a&ox3, ambulatory/independent- comes from home with , felt he has having an asthma exacerbation with sob/cough- was diagnosed with asthma as a child. Pt admits he hasnt seen a PCP in a very long time. Upon arrival pt was found to be in afib and had a BNP elevated 2354.1, additionally scans showed questionable pneumonia. RR equal/non labored- lungs diminished throughout. He was put on 2L O2 NC as his O2 sat sits around 91-92% and he is a non smoker. With O2 he is 93-95%. Pt has an 18G to Rt AC and 20G lt AC. There is a cardizem drip ordered that was never started- as the patients HR was 90s-low 100s- Rose Cat-hospitalist was notified of the HR and the decision was made to hold the drip and just start on PO cardizem with close watch of the HR, she didnt want to cancel the drip order yet just in case we happen to need it. Pt has no complaints of pain or discomfort.
--- NOTE | 2025-01-25 12:00 | CA_ITS ---
Transthoracic Echocardiogram Patient (Last, First, Middle): Bernard Vega D Gender: Male Date of : 1960 Age: 64 Procedure Date: 01/25/2025 Procedure Type: Transthoracic Echocardiogram Location: ER Height: 167.64 cm Weight: 91.63 kg BSA: 2.01 m2 Heart Rate: bpm BP: 150 / 100 mmHg Analytical Technician: TO Referring MD: Rose Cat NP Symptoms: chf, afib Study Quality: Fair/Contrast ECG Rhythm: Atrial Fibrillation Conclusions: - The left ventricular systolic function is mildly decreased. The calculated ejection fraction is 45% by biplane method. - The left atrium is severely dilated. - There is a flail posterior mitral leaflet. Highly eccentric, anteriorly directed, wall impinging jet suggestive of severe mitral regurgitation. Findings Procedure Information Contrast agent, definity, is being given per protocol without apparent complications. Left Ventricle Normal left ventricular cavity size. There is normal left ventricular wall thickness. The left ventricular systolic function is mildly decreased. The calculated ejection fraction is 45% by biplane method. There is mild global hypokinesis. Diastolic function is indeterminate on the basis of available data. Right Ventricle Mildly increased right ventricular cavity size. There is normal right ventricular systolic function. Atria The left atrium is severely dilated. The right atrium is moderately dilated. Aortic Valve There is a normal trileaflet aortic valve. There is mild calcification of the aortic valve. There is no aortic valve stenosis. There is trace (trivial) aortic valve regurgitation. Mitral Valve There is a flail posterior mitral leaflet. Highly eccentric, anteriorly directed, wall impinging jet suggestive of severe mitral regurgitation. Pulmonic Valve The pulmonic valve is likely normal. Tricuspid Valve There is mild tricuspid valve regurgitation. Borderline RVSP. Great Vessels The asc aorta is normal in size. Venous The inferior vena cava is mildly dilated and collapses greater than 50% with inspiration. Pericardium/Pleural There is no evidence of pericardial effusion. Prior Study Comparison No prior study available for comparison. Measurements 2D Linear Measurements IVSd: 0.84 0.6-0.9/0.6-1.0 cm LVIDd: 6.11 3.9-5.3/4.2-5.9 cm LVIDd Index: 3.04 2.4-3.2/2.2-3.1 cm/m2 LVIDs: 3.97 2.0-3.6 cm LVPWd: 0.87 0.7-1.1 cm LV Mass: 259.16 67-162/88-224 g LV Mass Index: 128.94 43-95/49-115 g/m2 LVOT Diam: 2.00 3.0+(-)1.3 cm 2D Systolic Function EF 4C: 43.80 >55% EF 2C: 42.60 >55% EF BiP: 44.60 >55% Mitral Valve MV Pk E: 0.87 MV Decel Time: 192.00 E'Lateral: 12.10 E'Medial: 7.46 E/E' Med: 11.70 E/E' Lat: 7.20 PHT: 56.00 MVA PHT: 3.93 Decel Payne: 4.55 Aortic Valve AoV Pk Dima: 1.09 AoV Mn Dima: 0.68 AoV VTI: 0.16 AoV Pk Grad: 5.00 Aov Mn Grad: 2.00 FIDEL Cont.VTI: 2.15 LVOT LVOT Pk Dima: 0.77 LVOT Mn Diam: 0.47 LVOT VTI: 0.11 LVOT Pk Grad: 2.00 LVOT Mn Grad: 1.00 LVOT Diam: 2.00 LVOT Area: 3.14 Diastolic Function MV Pk E: 0.87 E'Medial: 7.46 E/E' Med: 11.70 E' Laterial: 12.10 E/E' Lat: 7.20 Right Ventricle TAPSE (mm): 23.40 TVS' Dima: 10.90 Tricuspid Valve TR Pk Dima: 2.66 TR Pk Grad: 28.00 RA Press: 8.00 RVSP: 36.00 Great Vessels Aorta Sinus of Valsalva: 2.99 2.0-3.5 cm Ao Asc: 2.70 2.1-3.4 cm Updated in Other Vendor System with Status of Final Obed Pfeiffer MD electronically signed on 01/25/2025 4:57:14 PM with status of Final
[2025-01-25] MEDS: 0.9 % Sodium Chloride Flush 3 ML SYRINGE IVFLUSH ×2 (16:40→21:20)
[2025-01-26] VITALS (15 sets, daily range): BP systolic 92–145; BP diastolic 58–92; PULSE 86–117; RESP 15–26; TEMP 36.2–37.1; O2SAT 92–96; BMI 31.0
[2025-01-26 07:08] LABS: Hematocrit 45.9 % (42.0-52.0); Hemoglobin 15.2 g/dl (14.0-18.0); Mean Corpuscular HGB Conc 33.1 g/dl (31.0-36.0); Mean Corpuscular Hemoglobin 28.6 pg (27.0-33.0); Mean Corpuscular Volume 86.4 fL (80.0-98.0); NRBC Abs Auto 0.000 X10*3/uL (0.0-0.012); NRBC Pct Auto 0.0 /100WBC (0.0-0.2); Platelet Count 168 X10*3/uL (160-400); Red Blood Count 5.31 X10*6/uL (4.60-5.80); White Blood Count 6.9 X10*3/uL (4.8-10.8)
[2025-01-26 07:22] LABS: Alanine Aminotransferase 17 U/L (0-40); Albumin Level 3.9 g/dL (3.5-5.0); Alkaline Phosphatase 106 U/L (39-117); Aspartate Amino Transferase 21 U/L (5-37); Blood Urea Nitrogen 17 mg/dL (9-16); Calcium 9.0 mg/dL (8.4-10.2); Cholesterol 131 mg/dL (<200); Creatinine Clr Calc Pharmacy 64.9; Estimated Glomerular Filt Rate > 60; HDL Cholesterol 32 mg/dL (>40); Total Protein 6.3 g/dL (6.5-8.0); Triglycerides 65 mg/dL (<150)
[2025-01-26 07:26] LABS: NT Pro B Type Natriuretic Pept 929.7 pg/mL (<300)
[2025-01-26 07:29] LABS: Anion Gap 14 (12-20); Carbon Dioxide 26 mmol/L (22-29); Chloride 105 mmol/L (96-108); Potassium 3.7 mmol/L (3.3-5.1); Sodium 141 mmol/L (135-145)
--- NOTE | 2025-01-26 08:04 | HO.ANESPROP2 ---
Documented by User: Jo Mccormick NP 01/26/25 08:07 HPI - Anesthesia Eval Consult details Narrative: 64 yr old male for RON, cardioversion Currently admitted for CHF, Afib, pneumonia; pt reported to hospitalst that he has not been to MD or hospital in 15 yrs. Started on eliquis PMFSH Active Problems Active Problems: All Active Problems Acute congestive heart failure (Acute) Pleural effusion, bilateral (Acute) Atrial fibrillation with rapid ventricular response (Acute) New onset atrial fibrillation (Acute) Pneumonia (Acute) Acute respiratory distress (Acute) Past Medical History Medical History (Updated 01/26/25 @ 09:45 by Obed Pfeiffer MD) No pertinent past medical history Family History Family History (Updated 01/25/25 @ 08:41 by Rose Cat NP) Father Skin cancer Mother Cancer of unknown origin Surgical History Surgical History (Updated 01/26/25 @ 13:38 by Demetrice Romo RN) History of nasal surgery H/O hernia repair S/P repair of hydrocele Social History Social History (Updated 01/25/25 @ 08:44 by Rose Cat NP) Household Members: Spouse Housing: House Do you presently have visiting nurse or other home services: No Alcohol intake: current Alcohol intake frequency: holidays/special occasions only Comment: pt refused bed alarm Patient Tobacco Use Status: Never used Tobacco service: No Current occupational status: employed Meds Allergies Allergy/AdvReac Type Severity Reaction Status Date / Time Seasonal Allergies Allergy Runny Nose Verified 01/25/25 04:46 Sulfa (Sulfonamide Allergy Rash Verified 01/25/25 04:46 Antibiotics) Active Medications: Current Medications Acetaminophen (Acetaminophen 325 Mg Tablet) 650 mg PO Q6H PRN PRN Reason: Pain, Mild 1-3,fever,headache Albuterol/Ipratropium (Albuterol/Iprat 2.5/0.5mg 3 Ml Ampul.Neb) 3 ml INHALE Q4H PRN PRN Reason: Shortness of Breath/Wheezing Apixaban (Apixaban 5 Mg Tablet) 5 mg PO BID [facility] Last Admin: 01/25/25 21:18 Dose: 5 mg Benzonatate (Benzonatate 100 Mg Capsule) 100 mg PO TID PRN PRN Reason: Cough Calcium Carbonate (Calcium Carbonate 750 Mg Tab.Chew) 750 mg PO Q4H PRN PRN Reason: Heartburn Diltiazem HCl (Diltiazem Hcl 30 Mg Tablet) 30 mg PO QID [facility]; Protocol Last Admin: 01/26/25 05:41 Dose: 30 mg Furosemide (Furosemide 40 Mg/4 Ml Vial) 40 mg IVPUSH BID@0900,1800 [facility]; Protocol Last Admin: 01/25/25 16:36 Dose: 40 mg Diltiazem HCl 125 mg/ Sodium (Chloride) 125 mls @ 0 mls/hr IVCONT .Q0M [facility]; Protocol Ceftriaxone Sodium 1 gm/ (Sodium Chloride) 50 mls @ 100 mls/hr IV Q24H [facility] Azithromycin 500 mg/ Sodium (Chloride) 250 mls @ 125 mls/hr IV Q24H [facility] Last Infusion: 01/25/25 12:44 Dose: Infused Lisinopril (Lisinopril 5 Mg Tablet) 5 mg PO DAILY [facility]; Protocol Last Admin: 01/25/25 09:41 Dose: 5 mg Magnesium Hydroxide (Milk Of Magnesia 30 Ml Oral.Susp) 30 ml PO DAILY PRN PRN Reason: Constipation Melatonin (Melatonin 3 Mg Tablet) 6 mg PO BEDTIME PRN PRN Reason: Insomnia Ondansetron HCl (Ondansetron Hcl 4 Mg/2 Ml Vial) 4 mg IVPUSH Q8H PRN PRN Reason: Nausea and Vomiting Sodium Chloride (0.9 % Sodium Chloride Flush 3 Ml Syringe) 3 ml IVFLUSH QSHIFT [facility] Last Admin: 01/25/25 21:20 Dose: 3 ml Home Medications ?Medication ?Instructions ?Recorded ?Confirmed ?Last Taken ?Type No Known Home Meds 01/25/25 01/25/25 Unknown History Exam Height,Weight and Vital Signs: Height 5 ft 6 in Weight 84.4 kg Last Vital Signs Temp 97.7 F 01/26/25 07:41 Pulse 86 01/26/25 07:41 Resp 20 01/26/25 07:41 BP 117/83 01/26/25 07:41 Pulse Ox 95 01/26/25 07:41 O2 Del Method Room Air 01/26/25 07:41 O2 Flow Rate 2 01/25/25 09:34 Pertinent Lab Results Pertinent Lab Results: Laboratory Tests 01/25/25 01/25/25 01/25/25 05:01 05:07 07:36 WBC 8.5 RBC 5.44 Hgb 15.7 Hct 46.3 MCV 85.1 MCH 28.9 MCHC 33.9 RDW 13.0 Plt Count 170 MPV 10.7 Immature Gran % (Auto) 0.2 Neut % (Auto) 75.6 H Lymph % (Auto) 14.7 L Kendall % (Auto) 7.4 Eos % (Auto) 2.0 Baso % (Auto) 0.1 Lymph # (Auto) 1.2 Kendall # (Auto) 0.6 Eos # (Auto) 0.2 Baso # (Auto) 0.0 Abs Immat Gran (auto) 0.02 Absolute Neuts (auto) 6.4 Absolute Nucleated RBC 0.000 Nucleated RBC % (auto) 0.0 VBG pH 7.37 VBG pCO2 46 VBG pO2 46 VBG HCO3 27 H VBG O2 Saturation 64.0 VBG Base Excess 1.2 Sodium 141 Potassium 4.3 Chloride 108 Carbon Dioxide 22 Anion Gap 15 BUN 17 H Creatinine 1.17 Estim Creat Clear Calc 67.6 Estimated GFR > 60 Random Glucose 128 H Estimat Average Glucose 117 Hemoglobin A1c % 5.7 Lactic Acid 1.8 Calcium 9.0 Magnesium 2.1 Total Bilirubin 1.0 AST 26 ALT 23 Alkaline Phosphatase 129 H Troponin I High Sens 8.6 NT-Pro-B Natriuret Pep 2354.1 H Total Protein 7.0 Albumin 4.3 Triglycerides Cholesterol LDL Cholesterol, Calc HDL Cholesterol TSH 3.76 Influenza Type A (PCR) NEGATIVE Influenza Type B (PCR) NEGATIVE RSV RNA Qual (PCR) NEGATIVE SARS-CoV-2 RNA (RT-PCR) NEGATIVE 01/26/25 06:02 WBC 6.9 RBC 5.31 Hgb 15.2 Hct 45.9 MCV 86.4 MCH 28.6 MCHC 33.1 RDW 13.1 Plt Count 168 MPV 11.4 Immature Gran % (Auto) Neut % (Auto) Lymph % (Auto) Kendall % (Auto) Eos % (Auto) Baso % (Auto) Lymph # (Auto) Kendall # (Auto) Eos # (Auto) Baso # (Auto) Abs Immat Gran (auto) Absolute Neuts (auto) Absolute Nucleated RBC 0.000 Nucleated RBC % (auto) 0.0 VBG pH VBG pCO2 VBG pO2 VBG HCO3 VBG O2 Saturation VBG Base Excess Sodium 141 Potassium 3.7 Chloride 105 Carbon Dioxide 26 Anion Gap 14 BUN 17 H Creatinine 1.17 Estim Creat Clear Calc 64.9 Estimated GFR > 60 Random Glucose 113 Estimat Average Glucose Hemoglobin A1c % Lactic Acid Calcium 9.0 Magnesium Total Bilirubin 1.0 AST 21 ALT 17 Alkaline Phosphatase 106 Troponin I High Sens NT-Pro-B Natriuret Pep 929.7 H Total Protein 6.3 L Albumin 3.9 Triglycerides 65 Cholesterol 131 LDL Cholesterol, Calc 86 HDL Cholesterol 32 L TSH Influenza Type A (PCR) Influenza Type B (PCR) RSV RNA Qual (PCR) SARS-CoV-2 RNA (RT-PCR) Narrative Narrative: EKG 01/25/25 ent. Rate : 98 BPM Atrial Rate : * BPM P-R Int : * ms QRS Dur : 86 ms QT Int : 360 ms P-R-T Axes : * -3 -20 degrees QTcB Int : 459 ms Atrial fibrillation with premature ventricular or aberrantly conducted complexes Nonspecific T wave abnormality Abnormal ECG When compared with ECG of 25-Jan-2025 05:19, No significant changes seen ECHO 01/25/25 Conclusions: - The left ventricular systolic function is mildly decreased. The calculated ejection fraction is 45% by biplane method. - The left atrium is severely dilated. - There is a flail posterior mitral leaflet. Highly eccentric, anteriorly directed, wall impinging jet suggestive of severe mitral regurgitation. Documented by User: Daryl Avila MD 01/26/25 13:50 [facility] Past Medical History Medical History (Updated 01/26/25 @ 09:45 by Obed Pfeiffer MD) No pertinent past medical history Family History Family History (Updated 01/25/25 @ 08:41 by Rose Cat NP) Father Skin cancer Mother Cancer of unknown origin Family history of problems with anesthesia: No Surgical History Surgical History (Updated 01/26/25 @ 13:38 by Demetrice Romo RN) History of nasal surgery H/O hernia repair S/P repair of hydrocele History of Problems with Anesthesia: No Social History Social History (Updated 01/25/25 @ 08:44 by Rose Cat NP) Household Members: Spouse Housing: House Do you presently have visiting nurse or other home services: No Alcohol intake: current Alcohol intake frequency: holidays/special occasions only Comment: pt refused bed alarm Patient Tobacco Use Status: Never used Tobacco service: No Current occupational status: employed Meds Allergies Allergy/AdvReac Type Severity Reaction Status Date / Time Seasonal Allergies Allergy Runny Nose Verified 01/25/25 04:46 Sulfa (Sulfonamide Allergy Rash Verified 01/25/25 04:46 Antibiotics) Home Medications ?Medication ?Instructions ?Recorded ?Confirmed ?Last Taken ?Type No Known Home Meds 01/25/25 01/25/25 Unknown History Exam Airway Mallampati Class: I TM Dist: >3cm Neck ROM: Full Loose/Missing/Broken Teeth: No Heart: afib. Echo report reviewed. Lungs: ok Assessment and Plan Assessment Anesthesia Assessment: Anesthesia Plan Discussed and Chart Reviewed Final Anesthetic Review Family History of Problems with Anesthesia: No History of Problems with Anesthesia: No NPO: Yes ASA Class: III Final Preanesthetic Review: No Changes in Pt Med Stat, Meds/Allgs Chart Reviewed, Consent Obtained/Reviewed and Anes Risks/Benef Reviewed Patient Risk: Intermediate Procedure Risk: Intermediate Anesthetic Plan Anesthetic Plan: Agree w/ Assess. and Plan and TIVA Disposition: Standard PACU
[2025-01-26] MEDS: 0.9 % Sodium Chloride Flush 3 ML SYRINGE IVFLUSH ×3 (08:10→20:30)
[2025-01-26] MEDS: Furosemide 40 MG/4 ML VIAL IVPUSH (08:42)
--- NOTE | 2025-01-26 09:44 | PM.PNCARD ---
Subjective Subjective Date of Service: 01/26/25 Interval history: Patient states he feels slightly better but shortness of breath is still present. He is still in atrial fibrillation. Review of Systems Review of Systems Yes all other systems are reviewed and are negative Constitutional: Reports as per HPI and Reports no additional constitutional complaints Eyes: Reports as per HPI and Denies no additional eye complaints Denies system reviewed and no additional complaints, except as documented and Reports as per HPI Cardiovascular: Reports as per HPI, Reports no additional cardiovascular complaints, Denies acrocyanosis, Denies cool extremities, Denies chest pain, Denies leg edema, Denies lightheadedness, Denies palpitations and Reports dyspnea Respiratory: Reports as per HPI, Denies no additional respiratory complaints and Reports dyspnea Gastrointestinal: Reports as per HPI and Denies no additional gastrointestinal complaints Genitourinary: Reports no additional male genitourinary complaints and Reports as per HPI Musculoskeletal: Reports no additional musculoskeletal complaints and Reports as per HPI Skin/Breast: Reports system reviewed and no additional complaints, except as docu Reports system reviewed and no additional complaints, except as documented and Reports as per HPI Psychiatric: Reports no additional psychiatric complaints and Reports as per HPI Endocrine: Reports no additional endocrine complaints, Reports as per HPI and Denies palpitations Hematologic/Lymphatic: Reports no additional hematologic/lymphatic complaints and Reports as per HPI Allergic/Immunologic: Reports no additional allergic/immunologic complaints and Reports as per HPI Physical Exam Vital Signs: Last Vital Signs Temp 97.7 F 01/26/25 07:41 Pulse 86 01/26/25 07:41 Resp 20 01/26/25 07:41 BP 117/83 01/26/25 07:41 Pulse Ox 95 01/26/25 07:41 O2 Del Method Room Air 01/26/25 07:41 O2 Flow Rate 2 01/25/25 09:34 BMI result Body Mass Index 30.0 Const General: comfortable and no acute distress Orientation/consciousness: patient oriented x3 HEENT Other: Unremarkable Head: Yes normal to inspection Neck Neck: Yes normal visual inspection Chest Chest palpation & inspection: normal inspection of the chest Resp Auscultation: clear to auscultation bilaterally Cardio Palpation: normal PMI Heart sounds: S1 normal heart sound present, S2 normal heart sound present, no gallops, Murmur heart sound present systolic III/ and no rubs GI Palpation (GI): Soft to palpation Back/Spine/Pelvis Other: unremarkable Skin General skin exam: no rashes or lesions noted Neuro General: patient oriented x3 Extrem General: Yes normal to inspection Psych Mental Status: mental status grossly normal Objective Labs and Meds 01/26/25 06:02 01/26/25 06:02 Lab results: Laboratory Results - last 24 hr 01/26/25 06:02 WBC 6.9 RBC 5.31 Hgb 15.2 Hct 45.9 MCV 86.4 MCH 28.6 MCHC 33.1 RDW 13.1 Plt Count 168 MPV 11.4 Absolute Nucleated RBC 0.000 Nucleated RBC % (auto) 0.0 Sodium 141 Potassium 3.7 Chloride 105 Carbon Dioxide 26 Anion Gap 14 BUN 17 H Creatinine 1.17 Estim Creat Clear Calc 64.9 Estimated GFR > 60 Random Glucose 113 Calcium 9.0 Total Bilirubin 1.0 AST 21 ALT 17 Alkaline Phosphatase 106 NT-Pro-B Natriuret Pep 929.7 H Total Protein 6.3 L Albumin 3.9 Triglycerides 65 Cholesterol 131 LDL Cholesterol, Calc 86 HDL Cholesterol 32 L Progress Note: A&P Assessment and plan (1) Atrial fibrillation with rapid ventricular response: Status: Acute Assessment and Plan: Currently on diltiazem and okay to continue that. Continue Eliquis. Plan for RON/cardioversion today. (2) Nonrheumatic mitral valve regurgitation: Status: Acute Assessment and Plan: In the echocardiogram, flail posterior mitral leaflet with severe mitral regurgitation. We will review with RON. Likely he is going to need mitral valve repair in the future. (3) Acute congestive heart failure: Status: Acute Assessment and Plan: Hopefully, should improve somewhat with cardioversion and anglican of sinus rhythm. Eventual treatment would she will be mitral valve repair as above. He is on some diuretics for now and continue that. Time Spent With Patient Time: Total time managing care of this patient today ____ minutes. Progress Note: Quality Stroke Does the patient have a stroke diagnosis?: No Procedures Date of Service Date of Service: 01/26/25
--- NOTE | 2025-01-26 09:47 | MHC.SHP ---
Pre-Procedural Eval Section A - 24 Hr Update-Section A only Date of Service: 01/26/25 The patient is an INPATIENT: Yes Section B - Complete if H&P > 30 days Chief Complaint: CHF, afib Allergies: Allergies Allergy/AdvReac Type Severity Reaction Status Date / Time Seasonal Allergies Allergy Runny Nose Verified 01/25/25 04:46 Sulfa (Sulfonamide Allergy Rash Verified 01/25/25 04:46 Antibiotics) Plan I have reviewed the history and physical and performed a pertinent physical examination on my patient. No changes have occurred unless specified. Time Spent With Patient Time: Total time managing care of this patient today ____ minutes.
--- NOTE | 2025-01-26 09:48 | HO.CARDIVERS ---
Cardioversion Procedure Note Cardioversion Date of Procedure: 01/26/2025 Pre-Op Diagnosis: Atrial fibrillation Post-Op Diagnosis: Atrial fibrillation Consent: Informed consent obtained. Procedure: After informed consent was obtained, taken to operating room. We initially did a transesophageal echocardiogram. That showed no evidence of left atrial appendage thrombus. Subsequently, 120 joules of synchronized shock was administered. Rhythm remained in atrial fibrillation. Then 150 joules administered and there was a brief conversion to sinus but he went back into atrial fibrillation. He remained in atrial fibrillation at the end of procedure. Complications: None Impression: Unsuccessful cardioversion. Recommendations: Evaluate for mitral valve repair. EP consultation.
--- NOTE | 2025-01-26 10:00 | PC.NURSE ---
Report called to RN in prep for cardioversion today. Plan to give azithromycin and diltiazem prior to transport at 12:30
--- NOTE | 2025-01-26 12:03 | PC.NURSE ---
Azithromycin was infusin in left AC. Pt reported some discomfort when the ABO was started, he thought it would get better and said nothing. 30 minutes later, he reported some tingling in left fingertips; he has a history of carpal tunnel, so this was not so unusual. But the tingling was intensified. ABO infusion switched to right AC. Pt reports no discomfort. His heart rate is 100-110's at rest. He says he feels funny. He atributes it to being nervoud abou the procedure.
--- NOTE | 2025-01-26 12:32 | P.PNIM_ITS ---
Subjective Subjective Date of Service: 01/26/25 Interval History: Pt seen this am, no overnight events, pt complains of mild SOB specially with exertion but denies chest pain or palpitations, he is scheduled for cardioversion at 1230 today, has been on cardizem po, did not require cardizem gtt, Review of Systems -ve except as stated above Physical Exam 2 Exam: Exam: A&Ox3, in NAD, chest CTAB, on RA, no rales abd soft non tender, heart in afib rate in high 120ies as he just walked from bathroom no NEIL neuro: moving all extremities, sensations intact, psyc: calm and cooperative Vital Signs: Vital Signs: Last Vital Signs Temp 97.7 F 01/26/25 07:41 Pulse 86 01/26/25 07:41 Resp 20 01/26/25 07:41 BP 117/83 01/26/25 07:41 Pulse Ox 95 01/26/25 07:41 O2 Del Method Room Air 01/26/25 07:41 O2 Flow Rate 2 01/25/25 09:34 BMI result Body Mass Index 30.0 Objective Data Active Medications Acetaminophen (Acetaminophen 325 Mg Tablet) 650 mg PO Q6H PRN PRN Reason: Pain, Mild 1-3,fever,headache Albuterol/Ipratropium (Albuterol/Iprat 2.5/0.5mg 3 Ml Ampul.Neb) 3 ml INHALE Q4H PRN PRN Reason: Shortness of Breath/Wheezing Apixaban (Apixaban 5 Mg Tablet) 5 mg PO BID [facility] Last Admin: 01/26/25 08:10 Dose: 5 mg Documented By: CHELA Benzonatate (Benzonatate 100 Mg Capsule) 100 mg PO TID PRN PRN Reason: Cough Calcium Carbonate (Calcium Carbonate 750 Mg Tab.Chew) 750 mg PO Q4H PRN PRN Reason: Heartburn Diltiazem HCl (Diltiazem Hcl 30 Mg Tablet) 30 mg PO QID [facility]; Protocol Last Admin: 01/26/25 11:19 Dose: 30 mg Documented By: CHELA Furosemide (Furosemide 40 Mg/4 Ml Vial) 40 mg IVPUSH BID@0900,1800 [facility]; Protocol Last Admin: 01/26/25 08:42 Dose: 40 mg Documented By: CHELA Diltiazem HCl 125 mg/ Sodium (Chloride) 125 mls @ 0 mls/hr IVCONT .Q0M [facility]; Protocol Ceftriaxone Sodium 1 gm/ (Sodium Chloride) 50 mls @ 100 mls/hr IV Q24H [facility] Last Infusion: 01/26/25 09:50 Dose: Infused Documented By: CHELA Azithromycin 500 mg/ Sodium (Chloride) 250 mls @ 125 mls/hr IV Q24H [facility] Last Admin: 01/26/25 11:18 Dose: 125 mls/hr Documented By: CHELA Magnesium Hydroxide (Milk Of Magnesia 30 Ml Oral.Susp) 30 ml PO DAILY PRN PRN Reason: Constipation Melatonin (Melatonin 3 Mg Tablet) 6 mg PO BEDTIME PRN PRN Reason: Insomnia Ondansetron HCl (Ondansetron Hcl 4 Mg/2 Ml Vial) 4 mg IVPUSH Q8H PRN PRN Reason: Nausea and Vomiting Sodium Chloride (0.9 % Sodium Chloride Flush 3 Ml Syringe) 3 ml IVFLUSH QSHIFT [facility] Last Admin: 01/26/25 08:10 Dose: 3 ml Documented By: CHELA Labs 01/26/25 06:02 01/26/25 06:02 Labs: Laboratory Results - last 24 hr 01/26/25 06:02 MCV 86.4 MCH 28.6 MCHC 33.1 RDW 13.1 Plt Count 168 MPV 11.4 Absolute Nucleated RBC 0.000 Nucleated RBC % (auto) 0.0 Anion Gap 14 Estim Creat Clear Calc 64.9 Estimated GFR > 60 Random Glucose 113 Calcium 9.0 Total Bilirubin 1.0 AST 21 ALT 17 Alkaline Phosphatase 106 NT-Pro-B Natriuret Pep 929.7 H Total Protein 6.3 L Albumin 3.9 Triglycerides 65 Cholesterol 131 LDL Cholesterol, Calc 86 HDL Cholesterol 32 L Microbiology Microbiology Results: Microbiology 01/25/25 07:36 Blood Culture - Preliminary Blood - Venous No growth after 24 hours. 01/25/25 07:36 Blood Culture - Preliminary Blood - Venous No growth after 24 hours. Assessment and Plan (1) Acute congestive heart failure: Status: Acute (2) New onset atrial fibrillation: Status: Acute (3) Pneumonia: Status: Acute (4) Pleural effusion, bilateral: Status: Acute Plan 64-year-old man with no significant medical problems admitted with new onset atrial fibrillation, acute congestive heart failure and pneumonia. Patient reports he has not seen a physician or been hospitalized in over 15 years. New onset atrial fibrillation, unspecified Tachycardia and tachypnea, resolved Treated with 1 dose of IV diltiazem in the ER seen by cardiology echo shows The left ventricular systolic function is mildly decreased. The calculated ejection fraction is 45% by biplane method. - The left atrium is severely dilated. - There is a flail posterior mitral leaflet. Highly eccentric, anteriorly directed, wall impinging jet suggestive of severe mitral regurgitation. Plan: cardizem 30 mg qid eliquis 5 mg bid Monitor on telemetry NPO for cardioversion today cards reccs appreciated Acute congestive heart failure, unspecified Pleural effusions noted on CT scan, likely related to heart failure IV Lasix 40 mg IV b.i.d. switch to PO after cardioversion, Monitor intake and output Daily weights Pneumonia, unspecified IV Rocephin and azithromycin May use supplemental oxygen as needed to keep oxygen saturation greater than 91% Follow up blood cultures, NTD switch to PO Abx upon dc Elevated blood pressure readings No history of hypertension Started on lisinopril 5 mg daily, BP stable now, dc lisinopril Monitor blood pressures closely DVT prophylaxis on eliquis Full code diet npo for procedure, resume cardiac diet post procedure Quality Stroke Does the patient have a stroke diagnosis?: No VTE Prior VTE?: No VTE Risk Level:: Medical - moderate - high VTE Device Contraindication: Treatment Not Indicated VTE Drug Contraindication: N/A - Med Ordered
--- NOTE | 2025-01-26 12:33 | PC.NURSE ---
Rechecked pt. He states Doing fine. Right AC IV infusing
--- NOTE | 2025-01-26 14:18 | PC.NURSE ---
unable to enter orders for ivf that was requested by anesthesia to be put in by me. lr up at o
--- NOTE | 2025-01-26 14:30 | CA_ITS ---
Transesophageal Echocardiogram Patient (Last, First, Middle): Bernard Vega D Gender: M Date of : 1960 Age: 64 Procedure Date: 01/26/2025 Procedure Type: Transesophageal Echocardiogram Location: [facility] [place] Height: 177.8 cm Weight: kg Public Relations Assistant: Referring MD: Obed Pfeiffer MD Symptoms: Atrial fibrillation, mitral regurgitation Conclusion: ??? There is a flail posterior mitral leaflet. There is severe mitral valve regurgitation. The mitral regurgitation jet is directed anteriorly. Suspect mainly P2 flail, with some P3. ??? The left ventricular systolic function is mildly decreased. Findings Procedure Information Consent was obtained prior to the procedure. Pre RON oral cavity was checked and revealed no overcrowding. The adult 3D probe was passed with no difficulty. Left Ventricle The left ventricular systolic function is mildly decreased. The visually estimated ejection fraction is between 45-50%. Atria The left atrium is severely dilated. There is no evidence of a thrombus in the left atrial appendage. The right atrium is normal in size. Possible small PFO but there was no obvious shunting on color Doppler. Aortic Valve There is a normal trileaflet aortic valve. There is no aortic valve stenosis. There is trace (trivial) aortic valve regurgitation. Mitral Valve There is a flail posterior mitral leaflet. There is severe mitral valve regurgitation. The mitral regurgitation jet is directed anteriorly. There is no mitral valve stenosis. Suspect mainly P2 flail, with some P3. Effective regurgitant orifice area 0.4 cm2, suggestive of severe mitral regurgitation. Tricuspid Valve Normal tricuspid valve structure. There is mild tricuspid valve regurgitation. Pericardium/Pleural There is a small loculated pericardial effusion overlying the right ventricle. Prior Study Comparison No significant change compared to prior study dated: 01/25/2025. Measurements Mitral Valve MR Vol - PW Dopp: 32.38 MR VTI: 0.77 MR ERO: 42.00 MR Alias Dima: 0.39 MR RAD: 0.80 Updated by Obed Pfeiffer on 05:01 PM with Status of Final Obed Pfeiffer MD electronically signed on 01/26/2025 5:01:25 PM with status of Final
[2025-01-26] MEDS: Lactated Ringers 1,000 ML 20 ML IVCONT (14:35)
[2025-01-26] MEDS: Albuterol/Iprat 2.5/0.5MG 3 ML AMPUL.NEB INHALE (15:48)
[2025-01-26 16:15] LABS: Hematocrit 44.5 % (42.0-52.0); Hemoglobin 14.6 g/dl (14.0-18.0); Mean Corpuscular HGB Conc 32.8 g/dl (31.0-36.0); Mean Corpuscular Hemoglobin 28.9 pg (27.0-33.0); Mean Corpuscular Volume 88.1 fL (80.0-98.0); NRBC Abs Auto 0.000 X10*3/uL (0.0-0.012); NRBC Pct Auto 0.0 /100WBC (0.0-0.2); Platelet Count 164 X10*3/uL (160-400); Red Blood Count 5.05 X10*6/uL (4.60-5.80); White Blood Count 7.5 X10*3/uL (4.8-10.8)
[2025-01-26 16:22] LABS: INTERNATIONAL NORM RATIO 1.4 (0.9-1.1); Prothrombin Time 16.1 SEC (10.9-12.4)
[2025-01-26 16:25] LABS: PTT Heparin Drip 34.1 SEC (53-77.9)
[2025-01-26 17:36] LABS: Hematocrit 47.8 % (42.0-52.0); Hemoglobin 15.7 g/dl (14.0-18.0); Mean Corpuscular HGB Conc 32.8 g/dl (31.0-36.0); Mean Corpuscular Hemoglobin 28.9 pg (27.0-33.0); Mean Corpuscular Volume 87.9 fL (80.0-98.0); NRBC Abs Auto 0.000 X10*3/uL (0.0-0.012); NRBC Pct Auto 0.0 /100WBC (0.0-0.2); Platelet Count 168 X10*3/uL (160-400); Red Blood Count 5.44 X10*6/uL (4.60-5.80); White Blood Count 7.4 X10*3/uL (4.8-10.8)
[2025-01-26] MEDS: Heparin Sodium,Porcine/1/2NS 25,000 UNIT/250 ML IV.SOLN 12.18 UNIT IVCONT (17:40)
[2025-01-26 17:45] LABS: INTERNATIONAL NORM RATIO 1.3 (0.9-1.1); Prothrombin Time 15.2 SEC (10.9-12.4)
[2025-01-26 17:47] LABS: PTT Heparin Drip 34.0 SEC (53-77.9)
--- NOTE | 2025-01-26 17:48 | P.EN_ITS ---
Event Note Date of Service: 01/26/25 Event Note: Discussed case with Cardiology, unsuccessful cardioversion, severe MR on echocardiogram. Start IV heparin. Plan for transfer to [facility] when bed available Time Spent With Patient Time: Total time managing care of this patient today ____ minutes.
[2025-01-27] VITALS (7 sets, daily range): BP systolic 112–149; BP diastolic 70–88; PULSE 96–124; RESP 18–20; TEMP 36.3–37.2; O2SAT 93–97; BMI 30.7
[2025-01-27 00:18] LABS: PTT Heparin Drip 73.0 SEC (53-77.9)
[2025-01-27] MEDS: Albuterol/Iprat 2.5/0.5MG 3 ML AMPUL.NEB INHALE (04:00)
[2025-01-27 06:50] LABS: Hematocrit 45.1 % (42.0-52.0); Hemoglobin 14.9 g/dl (14.0-18.0); Mean Corpuscular HGB Conc 33.0 g/dl (31.0-36.0); Mean Corpuscular Hemoglobin 28.9 pg (27.0-33.0); Mean Corpuscular Volume 87.6 fL (80.0-98.0); NRBC Abs Auto 0.000 X10*3/uL (0.0-0.012); NRBC Pct Auto 0.0 /100WBC (0.0-0.2); Platelet Count 159 X10*3/uL (160-400); Red Blood Count 5.15 X10*6/uL (4.60-5.80); White Blood Count 6.4 X10*3/uL (4.8-10.8)
[2025-01-27 06:55] LABS: INTERNATIONAL NORM RATIO 1.2 (0.9-1.1); Prothrombin Time 14.1 SEC (10.9-12.4)
[2025-01-27 06:58] LABS: PTT Heparin Drip 76.5 SEC (53-77.9)
[2025-01-27] MEDS: 0.9 % Sodium Chloride Flush 3 ML SYRINGE IVFLUSH ×2 (07:36→17:32)
--- NOTE | 2025-01-27 08:21 | HO.POSTANES ---
Post Anesthesia Evaluation Post Anesthesia Evaluation Date of Service: 01/27/25 Vital Signs: Vital Signs Temp Pulse Resp BP Pulse Ox O2 Del Method 01/27/25 04:01 115 H 20 01/27/25 03:53 97.3 F 124 H 20 129/88 97 Room Air 01/26/25 23:52 97.6 F 104 H 18 145/92 H 96 Room Air 01/26/25 20:29 114/76 Anesthesia: Monitored Mental Status: Awake Pain Control: Satisfactory Nausea/Vomiting: None Hydration: Adequate Anesthesia-Related Issues: No Anes. Related Issues
--- NOTE | 2025-01-27 09:45 | PM.PNCARD ---
Subjective Subjective Date of Service: 01/27/25 Interval history: Patient had RON/cardioversion yesterday. He would not respond and remains in atrial fibrillation rapid rate. He stated that he was walking in the hallway and felt okay initially but then thought he was having an asthma attack. Then recovered. Review of Systems Review of Systems Yes all other systems are reviewed and are negative Constitutional: Reports as per HPI and Reports no additional constitutional complaints Eyes: Reports as per HPI and Denies no additional eye complaints Denies system reviewed and no additional complaints, except as documented and Reports as per HPI Cardiovascular: Reports as per HPI, Reports no additional cardiovascular complaints, Denies acrocyanosis, Denies cool extremities, Denies chest pain, Denies leg edema, Denies lightheadedness, Denies palpitations and Reports dyspnea Respiratory: Reports as per HPI, Denies no additional respiratory complaints and Reports dyspnea Gastrointestinal: Reports as per HPI and Denies no additional gastrointestinal complaints Genitourinary: Reports no additional male genitourinary complaints and Reports as per HPI Musculoskeletal: Reports no additional musculoskeletal complaints and Reports as per HPI Skin/Breast: Reports system reviewed and no additional complaints, except as docu Reports system reviewed and no additional complaints, except as documented and Reports as per HPI Psychiatric: Reports no additional psychiatric complaints and Reports as per HPI Endocrine: Reports no additional endocrine complaints, Reports as per HPI and Denies palpitations Hematologic/Lymphatic: Reports no additional hematologic/lymphatic complaints and Reports as per HPI Allergic/Immunologic: Reports no additional allergic/immunologic complaints and Reports as per HPI Physical Exam Vital Signs: Last Vital Signs Temp 98.3 F 01/27/25 08:00 Pulse 107 H 01/27/25 08:00 Resp 20 01/27/25 08:00 BP 128/88 01/27/25 08:00 Pulse Ox 93 01/27/25 08:00 O2 Del Method Room Air 01/27/25 08:00 O2 Flow Rate 2 01/25/25 09:34 BMI result Body Mass Index 30.7 Const General: comfortable and no acute distress Orientation/consciousness: patient oriented x3 HEENT Other: Unremarkable Head: Yes normal to inspection Neck Neck: Yes normal visual inspection Chest Chest palpation & inspection: normal inspection of the chest Resp Other: Few basal crackles Cardio Palpation: normal PMI Heart sounds: S1 normal heart sound present, S2 normal heart sound present, no gallops, Murmur heart sound present systolic III/ and no rubs GI Palpation (GI): Soft to palpation Back/Spine/Pelvis Other: unremarkable Skin General skin exam: no rashes or lesions noted Neuro General: patient oriented x3 Extrem General: Yes normal to inspection Psych Mental Status: mental status grossly normal Objective Labs and Meds 01/27/25 06:35 01/26/25 06:02 Lab results: Laboratory Results - last 24 hr 01/26/25 01/26/25 01/26/25 16:09 17:29 23:56 WBC 7.5 7.4 RBC 5.05 5.44 Hgb 14.6 15.7 Hct 44.5 47.8 MCV 88.1 87.9 MCH 28.9 28.9 MCHC 32.8 32.8 RDW 12.9 13.0 Plt Count 164 168 MPV 10.7 10.8 Absolute Nucleated RBC 0.000 0.000 Nucleated RBC % (auto) 0.0 0.0 PT 16.1 H 15.2 H INR 1.4 H 1.3 H aPTT Heparin Protocol 34.1 L 34.0 L 73.0 D 01/27/25 06:35 WBC 6.4 RBC 5.15 Hgb 14.9 Hct 45.1 MCV 87.6 MCH 28.9 MCHC 33.0 RDW 12.7 Plt Count 159 L MPV 11.2 Absolute Nucleated RBC 0.000 Nucleated RBC % (auto) 0.0 PT 14.1 H INR 1.2 H aPTT Heparin Protocol 76.5 Progress Note: A&P Assessment and plan (1) Atrial fibrillation with rapid ventricular response: Status: Acute Assessment and Plan: Failed cardioversion yesterday x2. He is currently on oral diltiazem and okay to continue that for the time being. Eventually, we will need to have rhythm control. Possibly Maze during the time of mitral valve repair. EP to see. (2) Nonrheumatic mitral valve regurgitation: Status: Acute Assessment and Plan: He has got a flail posterior leaflet with severe mitral regurgitation. Discussed with Dr. Ko at [facility]. He needs a mitral valve repair, possibly next week as an inpatient. Diagnostic catheterization scheduled for Friday at [facility]. (3) Acute congestive heart failure: Status: Acute Assessment and Plan: Unlikely to get better unless the mitral regurgitation is resolved and he is back to normal sinus rhythm as well. However, he is not overtly decompensated and should be okay with oral diuretics. Plan Await bed at [facility]. Time Spent With Patient Time: Total time managing care of this patient today ____ minutes. Progress Note: Quality Stroke Does the patient have a stroke diagnosis?: No Procedures Date of Service Date of Service: 01/27/25
--- NOTE | 2025-01-27 10:46 | MHC.CM.PN ---
Per MD in [facility], Patient has been accepted at [facility] and will transfer there pending bed availability.
--- NOTE | 2025-01-27 11:45 | HO.PM.IMPN ---
Subjective Subjective Date of Service: 01/27/25 Interval History: Pt went for cardioversion yesterday which was unsuccessful. Pt appears little disappointed this am, he denies any sx, he is waiting bed at [facility] for MR repair surgery. On heparin gtt, holding eliquis, rate well controlled, remains in afib. denies other sx Review of Systems -ve except as stated above Physical Exam Exam: Exam: A&Ox3, in NAD, chest CTAB, on RA, no rales abd soft non tender, heart in afib rate in high 90ies as he just walked from bathroom no NEIL neuro: moving all extremities, sensations intact, psyc: calm and cooperative Vital Signs: Vital Signs: Last Vital Signs Temp 98.3 F 01/27/25 08:00 Pulse 107 H 01/27/25 08:00 Resp 20 01/27/25 08:00 BP 128/88 01/27/25 08:00 Pulse Ox 93 01/27/25 08:00 O2 Del Method Room Air 01/27/25 08:00 O2 Flow Rate 2 01/25/25 09:34 BMI result Body Mass Index 30.7 Objective Data Active Medications Acetaminophen (Acetaminophen 325 Mg Tablet) 650 mg PO Q6H PRN PRN Reason: Pain, Mild 1-3,fever,headache Albuterol/Ipratropium (Albuterol/Iprat 2.5/0.5mg 3 Ml Ampul.Neb) 3 ml INHALE Q4H PRN PRN Reason: Shortness of Breath/Wheezing Last Admin: 01/27/25 04:00 Dose: 3 ml Documented By: MELANIE Benzonatate (Benzonatate 100 Mg Capsule) 100 mg PO TID PRN PRN Reason: Cough Last Admin: 01/27/25 03:50 Dose: 100 mg Documented By: THERON Calcium Carbonate (Calcium Carbonate 750 Mg Tab.Chew) 750 mg PO Q4H PRN PRN Reason: Heartburn Diltiazem HCl (Diltiazem Hcl 30 Mg Tablet) 30 mg PO QID [facility]; Protocol Last Admin: 01/27/25 09:03 Dose: 30 mg Documented By: CHELA Furosemide (Furosemide 20 Mg Tablet) 20 mg PO DAILY [facility]; Protocol Last Admin: 01/27/25 09:04 Dose: 20 mg Documented By: CHELA Heparin Sodium (Porcine) (Heparin Sodium,Porcine 5,000 Unit/Ml Vial) 3,500 unit 40 unit/kg (3500 unit) IVPUSH PROTOCOL BOLUS PRN; Protocol PRN Reason: 40 unit/kg - Heparin Protocol Heparin Sodium (Porcine) (Heparin Sodium,Porcine 5,000 Unit/Ml Vial) 7,000 unit 80 unit/kg (7000 unit) IVPUSH PROTOCOL BOLUS PRN; Protocol PRN Reason: 80 unit/kg - Heparin Protocol Ceftriaxone Sodium 1 gm/ (Sodium Chloride) 50 mls @ 100 mls/hr IV Q24H [facility] Last Infusion: 01/27/25 08:32 Dose: Infused Documented By: CHELA Azithromycin 500 mg/ Sodium (Chloride) 250 mls @ 125 mls/hr IV Q24H [facility] Last Admin: 01/27/25 10:55 Dose: 125 mls/hr Documented By: CHELA Lactated Ringer's (Lr) 1,000 mls @ 20 mls/hr IVCONT .Q24H [facility] Last Admin: 01/26/25 14:35 Dose: 20 mls/hr Documented By: JUICE Heparin Sodium/Sodium Chloride (Heparin Sodium,Porcine/1/2ns) 25,000 unit in 250 mls @ 0 mls/hr IVCONT .Q0M [facility]; Protocol Last Titration: 01/27/25 07:42 Dose: 14 units/kg/hr, 12.18 mls/hr Documented By: CHLEA Co-signed By: KASANDRA Magnesium Hydroxide (Milk Of Magnesia 30 Ml Oral.Susp) 30 ml PO DAILY PRN PRN Reason: Constipation Melatonin (Melatonin 3 Mg Tablet) 6 mg PO BEDTIME PRN PRN Reason: Insomnia Naloxone HCl (Naloxone Hcl 0.4 Mg/Ml Vial) 0.04 mg IVPUSH Q5M PRN PRN Reason: Excessive sedation or RR < 8 Ondansetron HCl (Ondansetron Hcl 4 Mg/2 Ml Vial) 4 mg IVPUSH Q8H PRN PRN Reason: Nausea and Vomiting Sodium Chloride (0.9 % Sodium Chloride Flush 3 Ml Syringe) 3 ml IVFLUSH QSHIFT [facility] Last Admin: 01/27/25 07:36 Dose: 3 ml Documented By: CHELA Labs 01/27/25 06:35 10/29/25 06:02 Labs: Laboratory Results - last 24 hr 01/26/25 01/26/25 01/26/25 16:09 17:29 23:56 MCV 88.1 87.9 MCH 28.9 28.9 MCHC 32.8 32.8 RDW 12.9 13.0 Plt Count 164 168 MPV 10.7 10.8 Absolute Nucleated RBC 0.000 0.000 Nucleated RBC % (auto) 0.0 0.0 PT 16.1 H 15.2 H INR 1.4 H 1.3 H aPTT Heparin Protocol 34.1 L 34.0 L 73.0 D 01/27/25 06:35 MCV 87.6 MCH 28.9 MCHC 33.0 RDW 12.7 Plt Count 159 L MPV 11.2 Absolute Nucleated RBC 0.000 Nucleated RBC % (auto) 0.0 PT 14.1 H INR 1.2 H aPTT Heparin Protocol 76.5 Microbiology Microbiology Results: Microbiology 01/25/25 07:36 Blood Culture - Preliminary Blood - Venous No growth after 48 hours. 01/25/25 07:36 Blood Culture - Preliminary Blood - Venous No growth after 48 hours. Assessment and Plan (1) New onset atrial fibrillation: Status: Acute (2) Nonrheumatic mitral valve regurgitation: Status: Acute (3) Pneumonia: Status: Acute (4) Pleural effusion, bilateral: Status: Acute Plan 64-year-old man with no significant medical problems admitted with new onset atrial fibrillation, acute congestive heart failure and pneumonia. Patient reports he has not seen a physician or been hospitalized in over 15 years. New onset atrial fibrillation, unspecified Tachycardia and tachypnea, resolved Treated with 1 dose of IV diltiazem in the ER seen by cardiology echo shows The left ventricular systolic function is mildly decreased. The calculated ejection fraction is 45% by biplane method. - The left atrium is severely dilated. - There is a flail posterior mitral leaflet. Highly eccentric, anteriorly directed, wall impinging jet suggestive of severe mitral regurgitation. underwent failed cardioversion yesterday, awaiting bed at [facility] now, on heparin gtt Plan: cardizem 30 mg qid eliquis 5 mg bid on hold, cont heparin gtt for now Monitor on telemetry cardiac diet cards reccs appreciated Acute congestive heart failure, unspecified resolved Pleural effusions noted on CT scan, likely related to heart failure IV Lasix 40 mg IV b.i.d. switched to lasix 20 mg daily today, appears euvolemic Monitor intake and output Daily weights Pneumonia, unspecified IV Rocephin and azithromycin dx 3 May use supplemental oxygen as needed to keep oxygen saturation greater than 91% Follow up blood cultures, NTD switch to PO Abx upon dc Elevated blood pressure readings No history of hypertension Started on lisinopril 5 mg daily, BP stable, dc lisinopril Monitor blood pressures closely DVT prophylaxis on heparin gtt Full code diet cardic diet OMN: transfer to [facility] for Mitral valve repair Quality Stroke Does the patient have a stroke diagnosis?: No VTE Prior VTE?: No VTE Risk Level:: Medical - moderate - high VTE Device Contraindication: Treatment Not Indicated VTE Drug Contraindication: N/A - Med Ordered
[2025-01-27] MEDS: Heparin Sodium,Porcine/1/2NS 25,000 UNIT/250 ML IV.SOLN 12.18 UNIT IVCONT (13:06)
--- NOTE | 2025-01-28 01:53 | PM.DS ---
DS: Providers Provider Date of Service: 01/28/25 Date of admission: 01/25/25 07:50 Date of discharge: 01/28/25 Primary care physician: Unknown Physician Admitting clinician: Rose Cat Attending physician on admission: Gale Lee Consults: 01/25/25 08:46 Consult to Cardiology Routine Consulting Provider: [facility] Reason for consultation: New onset atrial fibrillation, congestive heart failure Attending physician on discharge: Carlene Garcia DS: Transfer Hospital Acceptance Reason for Transfer: Severe mitral valve regurgitation Name of Facility: [facility] Accepting Provider: Dr. Ko. DS: Diagnosis Discharge Diagnosis (1) New onset atrial fibrillation: Status: Acute (2) Nonrheumatic mitral valve regurgitation: Status: Acute (3) Pneumonia: Status: Acute (4) Pleural effusion, bilateral: Status: Acute DS: Summary Hospital Course Hospital Course: HPI: Date of Service: 01/25/25 Chief Complaint: Shortness of breath 64-year-old man with no significant medical history presents to the ER with complaints of worsening shortness of breath with activity, palpitations and chest pressure over the last 3 weeks. He reported that he has not been in more than and has not on any medications but in the last few weeks he has noticed that with activity including climbing stairs and walking he has been more short of breath, when he sits down he starts to recover. He also reports central chest pressure without any radiation also with activity and heart palpitations. He denies alcohol, tobacco or drug use. In the ER chest CTA was negative for pulmonary embolism but did show pulmonary edema with bilateral small pleural effusions and patchy lower lobe consolidation suggesting possible, pro BNP was 2354, TSH 3.76. Blood pressure elevated at 183/118. In the ER patient was given a dose of diltiazem, albuterol, Lasix, ceftriaxone, doxycycline and 1 L of IV fluid. He will be admitted for further management and treatment of acute congestive heart failure, new onset AFib and pneumonia. Hospital course: [facility] new onset atrial fibrillation today with IV diltiazem and heparin infusion for anticoagulation. He also received treatment with Lasix IV for acute congestive heart failure associated with pleural effusions. His home meds including Entresto, spironolactone, Jardiance and carvedilol were continued. The next day after admission the patient was cardioverted by library technical assistant, Dr. Pfeiffer without success. He also received empiric IV antibiotic therapy with ceftriaxone and azithromycin for suspecting pneumonia. Transthoracic echo showed severe mitral regurgitation, LVEF 8% (eight) with severe global hypokinesis. Patient was transferred to [facility] for valve repair. Time Attestation Total time managing care of this patient today: 20 mintues. Discharge Coordination Time (in mins): 30 Quality: Safe Use of Opioids Does Pt have an Active Cancer Diagnosis on the Problem List?: No Quality: Stroke Does the patient have a stroke diagnosis?: No Physical Exam Exam: Exam: General: AxOx3, No acute distress Head: AT/NC ENT: Moist mucous membranes Neck: supple CVS; RRR, S1 S2 normal Lungs: Clear bilateral breath sounds, no wheezes or crackles Abd: Soft non tender, non distended Ext: No edema and no calf tenderness MSK: moving all 4 limbs Skin: No cyanosis or edema Psych: Cooperative with exam Neurology: no focal deficit Vital Signs: Vital Signs: Last Vital Signs Temp 97.8 F 01/27/25 23:58 Pulse 114 H 01/27/25 23:58 Resp 18 01/27/25 23:58 BP 149/88 H 01/27/25 23:58 Pulse Ox 95 01/27/25 23:58 O2 Del Method Room Air 01/27/25 23:58 O2 Flow Rate 2 01/25/25 09:34 BMI result Body Mass Index 30.7 DS: Data Data Completed and Pending Labs on day of discharge: Laboratory Results - last 24 hr 01/27/25 06:35 WBC 6.4 RBC 5.15 Hgb 14.9 Hct 45.1 MCV 87.6 MCH 28.9 MCHC 33.0 RDW 12.7 Plt Count 159 L MPV 11.2 Absolute Nucleated RBC 0.000 Nucleated RBC % (auto) 0.0 PT 14.1 H INR 1.2 H aPTT Heparin Protocol 76.5 Preliminary micro results at discharge 01/25/25 07:36 Blood Culture - Preliminary Blood - Venous No growth after 48 hours. 01/25/25 07:36 Blood Culture - Preliminary Blood - Venous No growth after 48 hours. Discharge Plan Discharge Anticipated Discharge Date/Time: 01/28/25 01:22 Patient Disposition: [facility] Discharge Diagnosis: Atrial fibrillation, severe mitral regurgitation Referrals: [facility] [Other] - 1 Week Physician,Unknown J [Primary Care Provider, Medical] - 1 Week Discharge Medications: No Action No Known Home Meds Discharge Orders: Discharge Order (Routine); Ordered 01/28/25 Ordered By: Ned Amanda Diet: Advance to usual diet Activity on Discharge: As tolerated Stand Alone Forms: Patient Portal Discharge page, Work/School Release Print Language: Jordanian Care Plan Goals: Transfer [facility] Health Concerns: Transfer [facility] Plan of Treatment: Transfer [facility] Assessment: Transfer [facility]
== END 2025-01-28 01:10 | disposition short-term general hospital (02) | DRG 201 ==
LOC: HO.ED 05:47 → HO.EDOVER 07:55 → HO.IMC 14:19
PROVIDERS: Internal Medicine; Admitting Provider Nurse Practitioner Acute Care; Emergency Provider Emergency Medicine; Visit Provider Hospitalist
PROC: 5A2204Z Restoration of Cardiac Rhythm, Single (ICD-10-PCS; CPT 93312; principal; 2025-01-26 14:30)
PROC: 5A2204Z Restoration of Cardiac Rhythm, Single (ICD-10-PCS; 2025-01-26 14:30)
DX: I48.91 Unspecified atrial fibrillation (principal); I50.23 Acute on chronic systolic (congestive) heart failure; J18.9 Pneumonia, unspecified organism; I34.0 Nonrheumatic mitral (valve) insufficiency; R03.0 Elevated blood-pressure reading, without diagnosis of hypertension; Z20.822 Contact with and (suspected) exposure to COVID-19
CPT/HCPCS: 36415; 71045; 71275; 80053; 80061; 82803; 83036; 83605; 83735; 83880; 84443; 84484; 85025; 85027; 85610; 85730; 87040; 87637; 92960; 93005; 93306; 94640; 99285; J0456; J0696; J1163; J1271; J1644; J1650; J1938; J2003; J2704; J7120; Q9957; Q9967

== ENCOUNTER → 2025-01-25 05:15 | Outpatient (BNV) | payer BC, SELFPAY | PROVIDERS: Emergency Provider Emergency Medicine; Visit Provider Radiology Diagnostic Radiology | DX: J81.1 Chronic pulmonary edema (principal); J90 Pleural effusion, not elsewhere classified | CPT/HCPCS: 71045; 71275 ==

== ENCOUNTER 2025-01-25 07:50 | Outpatient (BNV) | payer BC, SELFPAY | END 2025-01-26 14:30 | PROVIDERS: Admitting Provider Nurse Practitioner Acute Care; Emergency Provider Emergency Medicine; Visit Provider Internal Medicine | DX: I34.0 Nonrheumatic mitral (valve) insufficiency (principal) | CPT/HCPCS: 93312 ==

== ENCOUNTER → 2025-01-25 07:50 | Outpatient (BNV) | payer BC, SELFPAY | PROVIDERS: Admitting Provider Nurse Practitioner Acute Care; Emergency Provider Emergency Medicine; Visit Provider Internal Medicine | DX: I48.91 Unspecified atrial fibrillation (principal); I50.9 Heart failure, unspecified; I51.7 Cardiomegaly; I34.89 Other nonrheumatic mitral valve disorders | CPT/HCPCS: 93010; 93306; 99254 ==

== ENCOUNTER → 2025-01-25 07:50 | Outpatient (BNV) | payer BC, SELFPAY | PROVIDERS: Admitting Provider Nurse Practitioner Acute Care; Emergency Provider Emergency Medicine; Visit Provider Nurse Practitioner Acute Care | DX: I48.91 Unspecified atrial fibrillation (principal); I34.0 Nonrheumatic mitral (valve) insufficiency; J18.9 Pneumonia, unspecified organism; J90 Pleural effusion, not elsewhere classified | CPT/HCPCS: 99232 ==

== ENCOUNTER → 2025-01-31 23:59 | Outpatient (BNV) | payer BC, SELFPAY | PROVIDERS: Visit Provider Internal Medicine Cardiovascular Disease | DX: I34.0 Nonrheumatic mitral (valve) insufficiency (principal); I50.9 Heart failure, unspecified; I48.91 Unspecified atrial fibrillation | CPT/HCPCS: 93458; 99152 ==

== ENCOUNTER 2025-02-22 10:31 | Outpatient (AMB) | payer BC, SELFPAY ==
--- OUTSIDE RECORDS SUMMARY | 2025-02-20 19:00 | XMS_ITS | Clinical Summary ---
Author Organization Unknown Care Team Providers Care Case Supervisor Name Role Phone JERRY EVENT SERVICES MANAGER, ROBERT Unavailable Unavailable RENUKA RN, KAT Unavailable Unavailable KASI PT, JUAN CARLOS Unavailable Unavailable FLORA MCCULLOUGH LPN, REVA Unavailable Unavai lable Payers Payer Name Policy Type Policy Number Effective Date Expira tion Date OOS - [facility] [id number] Problems Condition Name Condition Details Condition Category Status Onset Date Resolution Date Last Treatment Date Treating Clinician Comments HEART FAILURE, UNSPECIFIED Active 2024-03 0- 00:00: 00 Allergies, Adverse Reactions, Alerts Allergy Name Allergy Type Status Severity Reaction(s) Onset Date Inactive Date Treating Clinician Comments SULFA DRUGS CROSS REACTORS Propensity to adverse reactions Active 2025-01 10:02:1 3 Vital Signs Vital Name Observation Time Observation Value Commen ts Temperature 2025-02-21 12:25:00.000 97 [degF] Temperature 2025-02-15 13:08:00.000 96.9 [degF] Temperature 2025-02-15 09:13:00.000 97.9 [degF] Temperature 2025-02-11 10:15:00.000 97.3 [degF] BMI (%) 2025-02-11 10:15:00.000 30 kg/m2 Height 2025-02-11 10:15:00.000 66 [in_us] Pulse 2025-02-21 12:25:00.000 76 /min Pulse 2025-02-15 13:08:00.000 90 /min Pulse 2025-02-15 09:13:00.000 92 /min Pulse 2025-02-11 10:15:00.000 74 /min O2 Saturation (%) 2025-02-21 12:25:00.000 99 % O2 Saturation (%) 2025-02-15 13:08:00.000 96 % O2 Saturation (%) 2025-02-15 09:13:00.000 97 % O2 Saturation (%) 2025-02-11 10:15:00.000 96 % Respirations 2025-02-21 12:25:00.000 18 /min Respirations 2025-02-15 13:08:00.000 20 /min Respirations 2025-02-15 09:13:00.000 18 /min Respirations 2025-02-11 10:15:00.000 20 /min Weight (lbs) 2025-02-21 12:26:00.000 185 [lb_av] Weight (lbs) 2025-02-15 13:14:00.000 185 [lb_av] Weight (lbs) 2025-02-15 09:13:00.000 185 [lb_av] Weight (lbs) 2025-02-11 10:15:00.000 192 [lb_av] Systolic Blood Pressure 2025-02-21 12:25:00.000 132 mm [Hg] Systolic Blood Pressure 2025-02-15 13:08:00.000 140 mm [Hg] Systolic Blood Pressure 2025-02-15 09:13:00.000 132 mm [Hg] Systolic Blood Pressure 2025-02-11 10:15:00.000 142 mm [Hg] Diastolic Blood Pressure 2025-02-21 12:25:00.000 70 mm [Hg] Diastolic Blood Pressure 2025-02-15 13:08:00.000 70 mm [Hg] Diastolic Blood Pressure 2025-02-15 09:13:00.000 70 mm [Hg] Diastolic Blood Pressure 2025-02-11 10:15:00.000 68 mm [Hg] Plan of Treatment Planned Activity Planned Date Details Comments Future Scheduled Test SKILLED NU RSE TO EVALUATE PATIENT, IDENTIFY PRIMARY AND CO-MORBID CONDITIONS CODED PER CODING GUIDELINES, AND DEVELOP PATIENT SPECIFIC PLAN OF CARE THAT INCLUDES PATIENT GOAL FOR HOME HEALTH. PLAN OF CARE TO INCLUDE 3 PRN VISIT(S) FOR OASIS DATA COLLECTION/COMPREHENSIVE ASSESSMENT AT TIMEPOINTS PER FEDERAL REGULATIONS. THIS INCLUDES VISITS FOR EVANS, RECERT, SCIC, AND/OR DC. [code = SKILLED NURSE TO EVALUATE PATIENT, IDENTIFY PRIMARY AND CO-MORBID CONDITIONS CODED PER CODING GUIDELINES, AND DEVELOP PATIENT SPECIFIC PLAN OF CARE THAT INCLUDES PATIENT GOAL FOR HOME HEALTH. PLAN OF CARE TO INCLUDE 3 PRN VISIT(S) FOR OASIS DATA COLLECTION/COMPREHENSIVE ASSESSMENT AT TIMEPOINTS PER FEDERAL REGULATIONS. THIS INCLUDES VISITS FOR EVANS, RECERT, SCIC, AND/OR DC.] Future Scheduled Test SKILLED NU RSE TO REVIEW PATIENT MEDICATIONS (PRESCRIPTION/OTC). INSTRUCT PATIENT/CAREGIVER ON ALL MEDICATIONS INCLUDING PURPOSE, WHEN TO TAKE, IMPORTANCE OF MEDICATION ADHERENCE, MONITORING OF EFFECTIVENESS, ADVERSE DRUG REACTIONS, POSSIBLE SIDE EFFECTS, AND WHEN TO NOTIFY AGENCY OR PHYSICIAN/PROVIDER OF ANY CONCERNS. [code = SKILLED NURSE TO REVIEW PATIENT MEDICATIONS (PRESCRIPTION/OTC). INSTRUCT PATIENT/CAREGIVER ON ALL MEDICATIONS INCLUDING PURPOSE, WHEN TO TAKE, IMPORTANCE OF MEDICATION ADHERENCE, MONITORING OF EFFECTIVENESS, ADVERSE DRUG REACTIONS, POSSIBLE SIDE EFFECTS, AND WHEN TO NOTIFY AGENCY OR PHYSICIAN/PROVIDER OF ANY CONCERNS.] Future Scheduled Test PATIENT THRASHER S A RISK OF HOSPITALIZATION AND ED USE. SKILLED NURSE TO ESTABLISH SUPPORT MEASURES TO MINIMIZE RISK OF HOSPITALIZATION AND ED USE, AND INSTRUCT PATIENT/CAREGIVER ON METHODS TO REDUCE AVOIDABLE HOSPITALIZATION AND ED USE. [code = PATIENT HAS A RISK OF HOSPITALIZATION AND ED USE. SKILLED NURSE TO ESTABLISH SUPPORT MEASURES TO MINIMIZE RISK OF HOSPITALIZATION AND ED USE, AND INSTRUCT PATIENT/CAREGIVER ON METHODS TO REDUCE AVOIDABLE HOSPITALIZATION AND ED USE.] Future Scheduled Test SKILLED NU RSE TO PROVIDE INSTRUCTION TO PATIENT/CAREGIVER RELATED TO DISCHARGE PLANNING. [code = SKILLED NURSE TO PROVIDE INSTRUCTION TO PATIENT/CAREGIVER RELATED TO DISCHARGE PLANNING.] Future Scheduled Test SKILLED NU RSE TO PERFORM ENVIRONMENTAL SAFETY RISK ASSESSMENT AND FALL RISK ASSESSMENT AND PROVIDE INSTRUCTION TO IMPLEMENT ENVIRONMENTAL SAFETY AND FALL PREVENTION STRATEGIES THROUGHOUT THE CERTIFICATION PERIOD. SKILLED NURSE WILL MAINTAIN SITUATIONAL AWARENESS AND WILL NOTIFY CLINICAL BARKER OPERATOR AND PHYSICIAN/PROVIDER WITH ANY CHANGE IN CONDITION. [code = SKILLED NURSE TO PERFORM ENVIRONMENTAL SAFETY RISK ASSESSMENT AND FALL RISK ASSESSMENT AND PROVIDE INSTRUCTION TO IMPLEMENT ENVIRONMENTAL SAFETY AND FALL PREVENTION STRATEGIES THROUGHOUT THE CERTIFICATION PERIOD. SKILLED NURSE WILL MAINTAIN SITUATIONAL AWARENESS AND WILL NOTIFY CLINICAL BARKER OPERATOR AND PHYSICIAN/PROVIDER WITH ANY CHANGE IN CONDITION.] Future Scheduled Test SKILLED NU RSE FOR OBSERVATION AND ASSESSMENT OF PATIENT S PAIN LEVEL AND EFFECTIVENESS OF PAIN MANAGEMENT REGIMEN. SKILLED NURSE TO INSTRUCT PATIENT/CAREGIVER REGARDING PHARMACOLOGIC AND NON-PHARMACOLOGIC PAIN CONTROL MEASURES. SKILLED NURSE TO REPORT TO PHYSICIAN IF PAIN LEVEL IS OUTSIDE OF ESTABLISHED PARAMETERS. [code = SKILLED NURSE FOR OBSERVATION AND ASSESSMENT OF PATIENT S PAIN LEVEL AND EFFECTIVENESS OF PAIN MANAGEMENT REGIMEN. SKILLED NURSE TO INSTRUCT PATIENT/CAREGIVER REGARDING PHARMACOLOGIC AND NON-PHARMACOLOGIC PAIN CONTROL MEASURES. SKILLED NURSE TO REPORT TO PHYSICIAN IF PAIN LEVEL IS OUTSIDE OF ESTABLISHED PARAMETERS.] Future Scheduled Test SKILLED NU RSE TO ASSESS PATIENT'S SKIN INTEGRITY AND INSTRUCT PATIENT/CAREGIVER ON MEASURES TO PREVENT PRESSURE ULCERS. [code = SKILLED NURSE TO ASSESS PATIENT'S SKIN INTEGRITY AND INSTRUCT PATIENT/CAREGIVER ON MEASURES TO PREVENT PRESSURE ULCERS.] Future Scheduled Test NEED FOR S KILLED TEACHING AND INTERVENTION RELATED TO SURGICAL MIDLINE CHEST INCISION TWO ABDOMINAL INCISIONS. SKILLED NURSE OR TRAINED PATIENT/CAREGIVER TO PERFORM WOUND CARE USING CLEAN TECHNIQUE, CLEANSE ALL INISIONS USING GAUZE VASHE SOLUTION, LET DRY LEAVE CHRONOMETER TESTER EVERY 12 HRS. 1-2 PRN SKILLED NURSE VISITS FOR WOUND CARE DUE TO COMPLICATIONS. SKILLED NURSE TO OBTAIN WOUND CULTURE PRN S/S OF INFECTION. WOUND CARE WILL BE PERFORMED BY TRAINED CAREGIVER ON DAYS WHEN SKILLED NURSE IS NOT SCHEDULED FOR A VISIT. DISCONTINUE WOUND CARE/SUPPLIES ONCE WOUND IS HEALED. [code = NEED FOR SKILLED TEACHING AND INTERVENTION RELATED TO SURGICAL MIDLINE CHEST INCISION TWO ABDOMINAL INCISIONS. SKILLED NURSE OR TRAINED PATIENT/CAREGIVER TO PERFORM WOUND CARE USING CLEAN TECHNIQUE, CLEANSE ALL INISIONS USING GAUZE VASHE SOLUTION, LET DRY LEAVE CHRONOMETER TESTER EVERY 12 HRS. 1-2 PRN SKILLED NURSE VISITS FOR WOUND CARE DUE TO COMPLICATIONS. SKILLED NURSE TO OBTAIN WOUND CULTURE PRN S/S OF INFECTION. WOUND CARE WILL BE PERFORMED BY TRAINED CAREGIVER ON DAYS WHEN SKILLED NURSE IS NOT SCHEDULED FOR A VISIT. DISCONTINUE WOUND CARE/SUPPLIES ONCE WOUND IS HEALED.] Future Scheduled Test SKILLED NU RSE FOR O/A OF RESPIRATORY SYSTEM TO IDENTIFY CHANGES ASSOCIATED WITH EXACERBATION AND TO PROVIDE SKILLED TEACHING ON MANAGEMENT OF ASTHMA RESPIRATORY DISEASE PROCESS. [code = SKILLED NURSE FOR O/A OF RESPIRATORY SYSTEM TO IDENTIFY CHANGES ASSOCIATED WITH EXACERBATION AND TO PROVIDE SKILLED TEACHING ON MANAGEMENT OF ASTHMA RESPIRATORY DISEASE PROCESS.] Future Scheduled Test SKILLED NU RSE FOR O/A, TEACHING AND SELF-MANAGEMENT RELATED TO HEART FAILURE. INSTRUCT PATIENT/CAREGIVER ON SIGNS AND SYMPTOMS OF EXACERBATION TO REPORT AND IMPORTANCE OF OBTAINING AND RECORDING DAILY WEIGHT AND/OR MEASUREMENTS. SN OR TRAINED PATIENT/CAREGIVER TO OBTAIN WEIGHT DAILY AND WEIGHT GAIN OF 2 LBS OVERNIGHT OR 5 LBS IN 1 WEEK TO BE REPORTED TO PHYSICIAN/PROVIDER. IF UNABLE TO WEIGH PATIENT, SN OR TRAINED PATIENT/CAREGIVER TO OBTAIN MEASUREMENT OF ANKLES IN CM DAILY AND REPORT AN INCREASE OF 2 CM TO PHYSICIAN/PROVIDER. [code = SKILLED NURSE FOR O/A, TEACHING AND SELF-MANAGEMENT RELATED TO HEART FAILURE. INSTRUCT PATIENT/CAREGIVER ON SIGNS AND SYMPTOMS OF EXACERBATION TO REPORT AND IMPORTANCE OF OBTAINING AND RECORDING DAILY WEIGHT AND/OR MEASUREMENTS. SN OR TRAINED PATIENT/CAREGIVER TO OBTAIN WEIGHT DAILY AND WEIGHT GAIN OF 2 LBS OVERNIGHT OR 5 LBS IN 1 WEEK TO BE REPORTED TO PHYSICIAN/PROVIDER. IF UNABLE TO WEIGH PATIENT, SN OR TRAINED PATIENT/CAREGIVER TO OBTAIN MEASUREMENT OF ANKLES IN CM DAILY AND REPORT AN INCREASE OF 2 CM TO PHYSICIAN/PROVIDER.] Future Scheduled Test SKILLED NU RSE TO INSTRUCT PATIENT/CAREGIVER ON SIGNS AND SYMPTOMS, RISK FACTORS, COMPLICATIONS, AND MANAGEMENT OF ATRIAL FIBRILLATION. [code = SKILLED NURSE TO INSTRUCT PATIENT/CAREGIVER ON SIGNS AND SYMPTOMS, RISK FACTORS, COMPLICATIONS, AND MANAGEMENT OF ATRIAL FIBRILLATION.] Future Scheduled Test SKILLED NU RSE FOR O/A, TEACHING, AND MANAGEMENT OF HEART FAILURE [code = SKILLED NURSE FOR O/A, TEACHING, AND MANAGEMENT OF HEART FAILURE] Future Scheduled Test SKILLED NU RSE FOR O/A OF SELF-CARE DEFICITS AND TO PROVIDE TEACHING RELATED TO SAFE PROVISION OF ADLS. [code = SKILLED NURSE FOR O/A OF SELF-CARE DEFICITS AND TO PROVIDE TEACHING RELATED TO SAFE PROVISION OF ADLS.] Future Scheduled Test SKILLED NU RSE FOR O/A AND SKILLED TEACHING RELATED TO SIGNS AND SYMPTOMS OF INFECTION AND INFECTION CONTROL MEASURES. [code = SKILLED NURSE FOR O/A AND SKILLED TEACHING RELATED TO SIGNS AND SYMPTOMS OF INFECTION AND INFECTION CONTROL MEASURES.] Future Scheduled Test PHYSICAL T HERAPIST TO EVALUATE PATIENT FOR PHYSICAL DECONDITIONING [code = PHYSICAL THERAPIST TO EVALUATE PATIENT FOR PHYSICAL DECONDITIONING] Future Scheduled Test PHYSICAL T HERAPY TO EVALUATE AND TREAT. PHYSICAL THERAPY EVALUATION PERFORMED. NO ADDITIONAL VISITS REQUIRED. PHYSICAL THERAPY EVALUATION ONLY (02/15/25) PATIENT IS A 64 YO MALE WITH PHYSICAL THERAPY REFERRAL AFTER EXPERIENCING SOB FOR 2 WKS, [place] [facility] (01/28 - 02/10/25), DX: AFIB WITH SEVERE MVR, UNDERWENT MVR ON 02/04/25 BY MD ESQUIVEL. PMH: MODERATE PERSISTANT ASTHMA, AFIB WITH RVR, SEVERE MVR, ACUTE DECOMPENSATED HEART FAILURE, PNA, KI, S/P MVR, S/P L ATRIAL LIGATION, S/P MAZE OPERATION FOR AFIB, ASTHMATICUS WITH COMPLICATIONS. PATIENT HAS MD ESQUIVEL 02/17/25. PATIENT HAS [facility] [place] [place] SCHEDULED 02/22/25 AT 10 AM. FALL HISTORY: NO FALLS REPORTED PLOF: PATIENT WORKED FULL-TIME A [employer] FIN[employer] FINISH[employer], INDEP WITH ADLS/IADLS, DROVE PATIENT LIVES WITH SUPPORTIVE MOSES IN A SINGLE FAMILY HOME, 3 STAIRS WITH RAIL AND 1 THRESHOLD STEP TO NEGOTIATE. CLOF: DME: HANDHELD SHOWERHEAD, GRAB BARS PATIENT WANTS TO RETURN TO WORK BUT IS OUT ON LEAVE UNTIL MAY 2025. REVIEWED MITRAL VALVE PRECAUTIONS: NO STRENUOUS ACTIVITY, NO LIFTING/PUSHING/PULLING GREATER THAN 10 POUNDS FOR 6-8 WEEKS, NO STRAINING CHEST UPPER ARM, SHORT SIMPLE WALKS . REVIEWED INVECTIVE SPIROMETER USAGE. BILAT LE ROM WFL, BILAT LE STRENGTH 4+ TO 5/5. PATIENT CURRENTLY SLEEPING ON SOFA BATHROOM IS ON FIRST FLOOR. PATIENT INDEP WITH TRANSFERS IN HOME. PATIENT AMB 20, 100' WITHOUT AD INDEP, DEMO 0 FALLS/LOB. PATIENT DEMO BILAT LE STEP LENGTHS WITH ADEQUATE FEET CLEARANCE. TUG = 10 SEC. PATIENT ASCENDED/DESCENDED 13 STAIRS WITH RAIL TO 2ND FLOOR INDEP, DEMO 0 SOB. ASSESSMENT: PHYSICAL THERAPY EVAL ONLY DUE TO HIGH FUNCTIONAL LEVEL AND PATIENT STARTING CARDIAC REHAB 02/22/25. PATIENT AND CG VERBALIZED ACCEPANCE WITH PHYSICAL THERAPY EVAL ONLY. MD GARZA OFFICE CALLED AND INFORMED ABOUT PATIENT STATUS AND PHYSICAL THERAPY EVAL ONLY. [code = PHYSICAL THERAPY TO EVALUATE AND TREAT. PHYSICAL THERAPY EVALUATION PERFORMED. NO ADDITIONAL VISITS REQUIRED. PHYSICAL THERAPY EVALUATION ONLY (02/15/25) PATIENT IS A 64 YO MALE WITH PHYSICAL THERAPY REFERRAL AFTER EXPERIENCING SOB FOR 2 WKS, H[place]PITALIZ[place] [facility] (01/28 - 02/10/25), DX: AFIB WITH SEVERE MVR, UNDERWENT MVR ON 02/04/25 BY MD ESQUIVEL. PMH: MODERATE PERSISTANT ASTHMA, AFIB WITH RVR, SEVERE MVR, ACUTE DECOMPENSATED HEART FAILURE, PNA, KI, S/P MVR, S/P L ATRIAL LIGATION, S/P MAZE OPERATION FOR AFIB, ASTHMATICUS WITH COMPLICATIONS. PATIENT HAS MD ESQUIVEL 02/17/25. PATIENT HAS [facility] [place] [facility] [place] SCHEDUL[place] 02/22/25 AT 10 AM. FALL HISTORY: NO FALLS REPORTED PLOF: PATIENT WORKED FULL-TIME A [employer] FIN[employer], INDEP WITH ADLS/IADLS, DROVE PATIENT LIVES WITH SUPPORTIVE MOSES IN A SINGLE FAMILY HOME, 3 STAIRS WITH RAIL AND 1 THRESHOLD STEP TO NEGOTIATE. CLOF: DME: HANDHELD SHOWERHEAD, GRAB BARS PATIENT WANTS TO RETURN TO WORK BUT IS OUT ON LEAVE UNTIL MAY 2025. REVIEWED MITRAL VALVE PRECAUTIONS: NO STRENUOUS ACTIVITY, NO LIFTING/PUSHING/PULLING GREATER THAN 10 POUNDS FOR 6-8 WEEKS, NO STRAINING CHEST UPPER ARM, SHORT SIMPLE WALKS . REVIEWED INVECTIVE SPIROMETER USAGE. BILAT LE ROM WFL, BILAT LE STRENGTH 4+ TO 5/5. PATIENT CURRENTLY SLEEPING ON SOFA BATHROOM IS ON FIRST FLOOR. PATIENT INDEP WITH TRANSFERS IN HOME. PATIENT AMB 20, 100' WITHOUT AD INDEP, DEMO 0 FALLS/LOB. PATIENT DEMO BILAT LE STEP LENGTHS WITH ADEQUATE FEET CLEARANCE. TUG = 10 SEC. PATIENT ASCENDED/DESCENDED 13 STAIRS WITH RAIL TO 2ND FLOOR INDEP, DEMO 0 SOB. ASSESSMENT: PHYSICAL THERAPY EVAL ONLY DUE TO HIGH FUNCTIONAL LEVEL AND PATIENT STARTING CARDIAC REHAB 02/22/25. PATIENT AND CG VERBALIZED ACCEPANCE WITH PHYSICAL THERAPY EVAL ONLY. MD GARZA OFFICE CALLED AND INFORMED ABOUT PATIENT STATUS AND PHYSICAL THERAPY EVAL ONLY.] Goal 2025-02-21 Patient Goal - TO GET BACK T O WORK Goal Provider Goal - A PLAN OF CARE WILL BE ESTABLISHED THAT MEETS PATIENT'S NURSING HOME NEEDS AND INCLUDES PATIENT GOAL FOR HOME HEALTH. Goal Provider Goal - PATIENT/CAREGIVER WILL VERBALIZE UNDERSTANDING OF EDUCATION PROVIDED ON MEDICATIONS BY THE END OF THE CERTIFICATION PERIOD. Goal Provider Goal - PATIENT WILL HAVE SUPPORT MEASURES ESTABLISHED TO PREVENT HOSPITALIZATION AND ED USE AND PATIENT/CAREGIVER WILL VERBALIZE/DEMONSTRATE METHODS TO REDUCE AVOIDABLE HOSPITALIZATION AND ED USE BY END OF EPISODE. Goal Provider Goal - PATIENT/CAREGIVER WILL VERBALIZE UNDERSTANDING OF DISCHARGE PLANNING INSTRUCTIONS BY DATE OF DISCHARGE. Goal Provider Goal - PATIENT/CAREGIVER WILL VERBALIZE/DEMONSTRATE EFFECTIVE ENVIRONMENTAL SAFETY AND FALL PREVENTION STRATEGIES, WILL REMAIN SAFE IN THE COMMUNITY, AND WILL BE FREE OF DANGER TO SELF AND OTHERS THROUGHOUT THE CERTIFICATION PERIOD. Goal Provider Goal - PATIENT/CAREGIVER WILL DEMONSTRATE UNDERSTANDING OF PHARMACOLOGIC AND NONPHARMACOLOGIC PAIN CONTROL MEASURES AND PATIENT WILL HAVE IMPROVEMENT IN PAIN INTERFERING WITH ACTIVITY EVIDENCED BY PAIN AT A LEVEL THAT IS ACCEPTABLE TO THE PATIENT AND PAIN LEVEL WITHIN ESTABLISHED PARAMETERS BY END OF CERTIFICATION PERIOD. Goal Provider Goal - PATIENT/CAREGIVER WILL VERBALIZE UNDERSTANDING OF PRESSURE ULCER PREVENTION BY END OF THE EPISODE. Goal Provider Goal - WOUND CARE WILL BE COMPLETED AND PATIENT WILL HAVE IMPROVED WOUND STATUS EVIDENCED BY NO SIGNS AND SYMPTOMS OF INFECTION, DECREASED WOUND SIZE, AND/OR NO COMPLICATIONS BY THE END OF THE CERTIFICATION PERIOD. Goal Provider Goal - PATIENT/CAREGIVER WILL VERBALIZE/DEMONSTRATE MANAGEMENT OF ASTHMA ... RESPIRATORY DISEASE PROCESS. CHANGES IN RESPIRATORY STATUS WILL BE IDENTIFIED AND REPORTED TO PHYSICIAN FOR PROMPT INTERVENTION THROUGHOUT THE CERTIFICATION PERIOD. Goal Provider Goal - PATIENT/CAREGIVER WILL VERBALIZE/DEMONSTRATE KNOWLEDGE AND MANAGEMENT OF HEART FAILURE DISEASE PROCESS BY END OF EPISODE. Goal Provider Goal - PATIENT/CAREGIVER WILL VERBALIZE UNDERSTANDING OF SIGNS AND SYMPTOMS, COMPLICATIONS, AND MANAGEMENT OF ATRIAL FIBRILLATION THROUGHOUT THE CERTIFICATION PERIOD. Goal Provider Goal - PATIENT/CAREGIVER WILL VERBALIZE/DEMONSTRATE MANAGEMENT OF HEART FAILURE CARDIAC DISEASE PROCESS AND EXACERBATIONS WILL BE IDENTIFIED AND PROMPTLY REPORTED THROUGHOUT THE CERTIFICATION PERIOD. Goal Provider Goal - PATIENT/CAREGIVER WILL VERBALIZE/DEMONSTRATE UNDERSTANDING OF SAFE PROVISION OF ADLS BY THE END OF THE CERTIFICATION PERIOD. Goal Provider Goal - PATIENT/CAREGIVER WILL VERBALIZE/DEMONSTRATE UNDERSTANDING OF S/S OF INFECTION AND INFECTION CONTROL MEASURES. SIGNS AND SYMPTOMS OF INFECTION WILL BE IDENTIFIED AND PHYSICIAN NOTIFIED FOR PROMPT INTERVENTION THROUGHOUT THE CERTIFICATION PERIOD. Goal Provider Goal - A PHYSICAL THERAPY EVALUATION TO BE COMPLETED WITH RECOMMENDATIONS AND/OR WRITTEN PLAN OF TREATMENT ESTABLISHED FOR PHYSICIAN S SIGNATURE. Goal Provider Goal - NONE Reason for Visit INDEPENDENT IN THE COMMUNITY Encounters Start Date/Time End Date/Time Encounter Type Admission Type Attending [facility] Care Department Encounter ID Discharge Date Discharge Status Discharge Condition Discharge Reason Percent Goals Met 2025-02-11 00:00:00 2025-02-21 00:00:00 Outpatient NEW ADMISSION [facility] [id number] 2025-02-21 00:00:00 DISCHARGE TO HOME OR SELF CARE INDEPENDEN T IN THE COMMUNITY GOALS MET ( ONLY) 100.00
--- NOTE | 2025-02-22 10:32 | MHC.OFFVIS ---
Vital Signs 02/22/25 10:33 Height 5 ft 6 in Weight 180 lb 12.465 oz BMI 29.2 BP 88/48 L Blood Pressure Location Rt brachial Position Sitting Pulse 82 Pulse Source Monitor Intake Visit Reasons: [facility] Follow up- Mitral valve repair (HS) Environmental Geologist Required: No Allergies Seasonal Allergies Allergy (Verified 02/22/25 10:35) Runny Nose Sulfa (Sulfonamide Antibiotics) Allergy (Verified 02/22/25 10:35) Rash Medication List - Last Reconciled 02/22/25 by PATI Crespo apixaban (Eliquis) 5 mg PO BID aspirin 81 mg PO DAILY metoprolol succinate ER 25 mg PO BID HPI HPI [facility] Follow up- Mitral valve repair (HS): Details: The patient is a 64-year-old individual presenting for a follow-up visit after recent [facility] hospitalization and cardiac surgery for severe mitral stenosis. He has presented to the hospital initially with increasing shortness of breath, heart palpitations, and chest pressure. He was found to have new-onset atrial fibrillation and congestive heart failure and was treated with IV diltiazem for rate control and IV diuretics. A transthoracic echocardiogram showed severe mitral regurgitation, an ejection fraction of 45-50%, a small loculated pericardial effusion, and a possible small PFO. A cardioversion was performed with a successful. He was transferred to [facility] and on Cardiac catheterization on 01/31/2025 showed normal coronary arteries. Then 02/04/2025, underwent mitral valve repair with a ring annuloplasty, a modified left atrial maze procedure with cryoablation, and left atrial appendage ligation with an AtraClip. Postoperatively, telemetry showed recurrent atrial fibrillation/flutter, and an amiodarone load was reportedly ineffective. There was a concern of 2:1 AV block post procedure. He was seen by electrophysiology and there was no indication for pacemaker. Since discharge, the patient has been feeling good but weak, with chest pain only upon coughing. The patient reports no shortness of breath or palpitations, but experiences some dizziness, which was also present prior to hospitalization. Activity has been limited to walking, after which the patient feels tired and needs to nap. Fluid intake has been low for the past few days For no clear reason. He reports compliance with his medications. He is hoping to start cardiac rehab in the near future. He says he was seen by the surgeon last week and does not have to go back. He has an appointment with Dr. Acevedo in May. He had not seen a doctor in the 14 years prior to his initial hospital admission. [facility] Medical History No pertinent past medical history Surgical History History of nasal surgery H/O hernia repair S/P repair of hydrocele Family History Father Skin cancer Mother Cancer of unknown origin Social History Household Members: Spouse Housing: House Do you presently have visiting nurse or other home services: No Alcohol intake: current Alcohol intake frequency: holidays/special occasions only Comment: pt refused bed alarm Patient Tobacco Use Status: Never used Tobacco service: No Current occupational status: employed Review of Systems Const All systems reviewed & are unremarkable except as noted in HPI and below ENT Details: some brief lightheadedness with quick position changes Denies dizziness Card Details: minor chest wall soreness Denies chest pain, Denies chest pain at rest, Denies chest pain with activity, Denies rapid heart rate, Denies pedal edema, Denies edema, Denies leg edema, Denies lightheadedness, Denies palpitations, Denies dyspnea, Denies dyspnea on exertion and Denies orthopnea Resp Denies cough, Denies dyspnea and Denies dyspnea on exertion GI Denies hematochezia and Denies change in stool character Musc Denies abnormal gait, Denies limited range of motion, Denies muscle cramps, Denies muscle weakness, Denies numbness, Denies radiating pain into limb, Denies stiffness and Denies tingling Neuro Denies abnormal gait, Denies dizziness, Denies numbness and Denies tingling Endo Denies palpitations Physical Exam Vital Signs: Last Vital Signs Pulse 84 02/22/25 10:33 BMI result Body Mass Index 29.2 Chest Other: sternal incision and drain sites healing very well - fulling intact Office Procedures EKG Details: Today, read by me, atrial fibrillation, can not exclude prior anterior infarct, T-wave abnormality in the inferior lateral leads, rate 82, QTC 425 milliseconds [id number], Complete Assessment & Plan Assessment & Plan (1) Acute congestive heart failure: Code(s): I50.9 - Heart failure, unspecified Category: Medical Plan: Recent [facility] admission with a finding of acute Congestive heart failure along with severe MR and AFib RVR. His echocardiogram showed EF 45-50%, severe mitral regurgitation, small loculated pericardial effusion overlying the left ventricle and possible small PFO. He was diuresed and his underlying medical conditions were managed. At this time he is not fluid overloaded on exam. He has not requiring diuretics. Will plan for a repeat echocardiogram approximately 6 weeks post cardiac surgery. Signs and symptoms of heart failure reviewed with him. (2) Nonrheumatic mitral valve regurgitation: Code(s): I34.0 - Nonrheumatic mitral (valve) insufficiency Category: Medical Plan: New finding of severe mitral regurgitation. On 02/04/2025 he underwent mitral valve repair with ring annuloplasty, modified left atrial Maze procedure with cryoablation, left atrial appendage ligation with atrial clip, Dr Ko. He says he has seen cardiac surgery in follow-up and does not have to return. Sternal incision is healing very well. Will update echo as above. Plan to start cardiac rehab in a few weeks. (3) New onset atrial fibrillation: Code(s): I48.91 - Unspecified atrial fibrillation Category: Medical Plan: New finding of AFib at time of [facility] admission. He was initially treated with rate control then underwent a RON cardioversion. He did convert to sinus rhythm then following transfer to [facility] he reverted back to atrial fibrillation. During his valve surgery he did have left atrial appendage ligation and modified left Maze procedure with cryoablation. Postoperatively he was having low heart rates and there was concern for two-to-one block. He was evaluated by EP and pacemaker not indicated. At the time of discharge she was sent home on metoprolol XL 25 mg b.i.d.. EKG done today showing atrial fibrillation, rate 82. Will check Holter monitor. He has follow-up with Dr. Acevedo in May. Going forward may need repeat cardioversion. Cardiology follow-up this office after that visit. (4) S/P cardiac cath: Comment: 01/31/2025, normal coronary arteries Code(s): Z98.890 - Other specified postprocedural states Category: Surgical (5) S/P mitral valve repair: Comment: 02/04/2025 mitral valve repair with ring annuloplasty modified left atrial Maze procedure with cryoablation and left atrial appendage ligation with atrial clip Code(s): Z98.890 - Other specified postprocedural states Category: Surgical Plan: Sternal incision healing very well (6) Low BP: Code(s): I95.9 - Hypotension, unspecified Category: Medical Plan: Blood pressure low today. He does report some lightheadedness with quick position changes. Home blood pressures reportedly well controlled with systolic ranging 108-139. He has not been drinking adequate liquids. Instructed to increase fluids intake. Continue metoprolol at same dose for now. May need to cut back dose if systolic starts to run less than 100 consistently. (7) Hospital discharge follow-up: Code(s): Z51.89 - Encounter for other specified aftercare Category: Medical Plan: Hospital notes reviewed Plan Today I reviewed the patient's recent hospitalization, course, and cardiac surgery. I explained that while the patient has reverted to atrial fibrillation, the maze procedure performed during surgery may improve the success of a future cardioversion, which we can consider after the chest has healed more. We discussed the current low blood pressure and dizziness, which I believe is due to reduced fluid intake. I advised the patient to increase fluids and will not change the metoprolol at this time, as it is necessary for heart rate control. I provided instructions to call if the lightheadedness worsens or if systolic blood pressure drops below 100, in which case we may cut back the metoprolol. I explained that an order will be placed for cardiac rehab and a repeat echocardiogram in a few weeks, and that scheduling will call for both. I reiterated the surgeon's recommendation to avoid driving to allow the sternum to heal and prevent complications in case of an accident. The patient will follow up with EP Dr. Acevedo in May and with Dr. Pfeiffer here in approximately three months, after seeing Dr. Acevedo.. Orders: Orders Cardiac Rehab 03/14/25 Z98.890 - Other specified postprocedural states CA echo transthoracic complete 03/21/25 I34.0 - Nonrheumatic mitral (valve) insufficiency, Z98.890 - Other specified postprocedural states ECG 3 day holter monitor 03/21/25 I48.91 - Unspecified atrial fibrillation Patient Instructions: - Drink more fluids, aiming for at least 40 to 50 ounces per day, to help with your low blood pressure and dizziness. - Continue taking all your medications as prescribed, including Eliquis, baby aspirin, and metoprolol. - Please call our office if your dizziness gets worse or if your top blood pressure number is consistently under 100. - We will be placing an order for cardiac rehab. They will call you to get you scheduled. - We will also order a follow-up heart ultrasound (echocardiogram) and heart monitor to be done in a few weeks. The scheduling office will call you to set this up. - Do not drive for another few weeks to allow your chest bone to heal fully, as recommended by your surgeon. - Keep your follow-up appointment with the heart rhythm specialist, Dr. Acevedo, in May. - We have scheduled a follow-up visit for you here with Dr. Pfeiffer in about three months. Patient was informed and verbally consented to the use of an ambient scribe for clinic note documentation during this visit. Visit time spent on chart review, interview, assessment, orders, documentation. Coding Level of Care Code Est Pt Level 4 (78315) Complex visit Add On G2211 Diagnoses Acute congestive heart failure I50.9 Nonrheumatic mitral valve regurgitation I34.0 New onset atrial fibrillation I48.91 S/P cardiac cath Z98.890 S/P mitral valve repair Z98.890 Low BP I95.9 Hospital discharge follow-up Z51.89 CPT Codes EKG - CPT: 48767-[id number], Complete ([id number]) Time Spent (min) 36
[2025-02-22 10:33] VITALS: BP 88/48; PULSE 82; BMI 29.2
--- OUTSIDE RECORDS SUMMARY | 2025-02-22 13:14 | XMS_ITS | Clinical Summary ---
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 Not on kevin e 02/08/2025 Are you concerned about learning? Not on file 02/08/2025 No 02/08/2025 No 02/08/2025 Digital Access Answer Date Recorded No 02/08/2025 No 02/08/2025 Reliable internet access at home? Not on file 02/08/2025 Device with a working camera? 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 It is not the complete legal health record.[facility]
== END 2025-02-22 11:18 | disposition home or self-care (01) ==
LOC: HO.HCS 10:31
PROVIDERS: Visit Provider Nurse Practitioner Family
DX: I50.9 Heart failure, unspecified (principal); I34.0 Nonrheumatic mitral (valve) insufficiency; I48.91 Unspecified atrial fibrillation; Z98.890 Other specified postprocedural states; I95.9 Hypotension, unspecified; Z51.89 Encounter for other specified aftercare
CPT/HCPCS: 93010; 99214

== ENCOUNTER → 2025-02-22 10:31 | Outpatient (BNVA) | payer BC, SELFPAY | PROVIDERS: Visit Provider Nurse Practitioner Family | DX: I34.0 Nonrheumatic mitral (valve) insufficiency (principal); I50.9 Heart failure, unspecified | CPT/HCPCS: 93005 ==